=== PATIENT | female | born 1940 | race Caucasian/White ===

== ENCOUNTER → 2016-08-03 | Day surgery (SDC) | payer OTHER, BC ==
--- NOTE | 2016-08-06 10:33 | OP ---
DATE OF OPERATION: 08/03/2016 PREOPERATIVE DIAGNOSIS: Right breast mass and right axillary adenopathy, suspicious. POSTOPERATIVE DIAGNOSIS: Right breast mass and right axillary adenopathy, suspicious. PROCEDURE: Right ultrasound-guided axillary node biopsy. ANESTHESIA: Local. ATTENDING SURGEON: Ana Bertrand MD ESTIMATED BLOOD LOSS: Minimal. COMPLICATIONS: None. DESCRIPTION OF PROCEDURE: The patient was made aware of the risks and benefits of the procedure and consented. She was placed in the supine position. Under sterile conditions with 1% lidocaine for local anesthesia, a small gayatri was made in the skin. Using a 13-gauge suction biopsy device under ultrasound guidance, 6 cores were obtained of the right axillary node and submitted to Pathology. Likewise, under ultrasound guidance, a clip was placed into the biopsy region well tolerated by patient. Steri-Strips and a sterile bandage was applied. I was going to do an ultrasound-guided core of the right breast as well, but it was very distorted by the skin retraction, and it was felt that a skin biopsy would be more successful. Therefore, the case was turned over to Dr. Roblero, who performed a skin biopsy. ANA BERTRAND M.D. [id number]
--- NOTE | 2016-08-06 15:18 | PATH ---
Surgical Pathology Report Patient Name: ALEX EVANGELISTA [facility]. Rec. #: [id number] /Age/Gender: 1940 (Age: 75) / F Account: [id number] Location: Taken: 08/03/2016 Received: 08/03/2016 Reported: 08/06/2016 Physicians: Angelique Granado M.D. Specimen(s) Received A: RIGHT AXILLARY NODE CORE BIOPSY B: SKIN PUNCH BIOPSY RIGHT UPPER ABDOMINAL WALL Clinical History Palpable mass Ultrasound findings: Highly suspicious/malignant Final Diagnosis A. axillary LYMPH node, right, core biopsy: Invasive ductal carcinoma, poorly differentiated, measuring 4 mm in greatest dimension in this material. (See note) Note: No definitive lymph node tissue is identified in this biopsy; however this may represent an extensively involved lymph node with no identifiable uninvolved [place] tissue. Correlation with clinical and radiologic findings is recommended. Results of ER and UT studies performed on block A1 at [facility] are as follows: ER (clone [id number] mouse monoclonal antibody by [employer]): >9 0 % nuclear staining with moderate to strong intensity (Positive). UT (clone16 mouse monoclonal antibody by [employer]) :~10 % nuclear staining with strong intensity (Positive). Results of Her2 and Ki67 studies will be reported separately in an addendum. Positive and negative controls (internal if applicable) show appropriate results. Formalin fixation and cold ischemic times are within current ASCO/CAP recommendations for ER, UT and Her2 testing. B. upper abdominal wall, right, punch biopsy: skin showing MILD chronic non-specific inflammation and fibrosis. Negative for malignancy. Electronically Signed Verenice Pollard M.D. Addendum Reported: 08/07/2016 Addendum Diagnosis Results of Her2 (IHC) & Ki-67 studies performed on block A1 at [place], [place] ([id number]) are as follows: Her2 IHC (EP3 from [employer], formerly known as [id number], using Ren Polymer Refine detection kit): 3+ (Positive). Ki-67: 25-30% (Intermediate). Positive and negative controls (internal if applicable) show appropriate results. Verenice Pollard M.D. Gross Description A.Received in formalin labeled "right axillary node core biopsy," is a 3.6 x 2.6 x 0.3 cm. aggregate of multiple campo-yellow, irregular to cylindrical portions of fibroadipose tissue admixed with blood clot. The formalin is filtered and the specimen is entirely submitted in two cassettes. Time to formalin fixation: < 1 minute. Total formalin fixation time: Approximately 8 hours B. Received in formalin labeled "right punch upper abdominal wall," is a 0.3 cm. in diameter campo, circular skin punch biopsy excised to a depth of 0.5 cm. The epidermal surface is unremarkable. The specimen is submitted in toto in one cassette. 08/03/2016
--- NOTE | 2016-09-01 06:56 | OP ---
DATE OF OPERATION: 08/03/2016 PREOPERATIVE DIAGNOSES: Right breast mass and right axillary adenopathy, suspicious. POSTOPERATIVE DIAGNOSES: Right breast mass and right axillary adenopathy, suspicious. PROCEDURE: Punch biopsy of right chest wall skin. ANESTHESIA: Local. ATTENDING: Taina Roblero MD ESTIMATED BLOOD LOSS: Minimal. COMPLICATIONS: None. PROCEDURE: The patient was undergoing a biopsy of the right breast mass and right axillary adenopathy. The lymph node biopsy was performed by Dr. Giles. The decision was then made to do a punch biopsy of the skin instead of a core biopsy of the right breast mass. This was done by cleansing the skin with Betadine and infiltrating the skin with lidocaine 1%. A 4-mm punch biopsy was then taken. It was placed in formalin and sent to Pathology for further examination. The skin was closed with a simple suture of 3-0 nylon. Angelique [id number] MTDD
== END | disposition home or self-care (01) ==
LOC: FRADUS-SUR 13:34
PROVIDERS: ATTEND Surgery
PROC: 07B53ZX Excision of Right Axillary Lymphatic, Percutaneous Approach, Diagnostic (ICD-10-PCS; principal; 2016-08-03)
PROC: BH47ZZZ Ultrasonography of Upper Extremity (ICD-10-PCS; 2016-08-03)
PROC: 0JB60ZX Excision of Chest Subcutaneous Tissue and Fascia, Open Approach, Diagnostic (ICD-10-PCS; 2016-08-03)
DX: C96.9 Malignant neoplasm of lymphoid, hematopoietic and related tissue, unspecified (principal); N63 Unspecified lump in breast; R59.9 Enlarged lymph nodes, unspecified
CPT/HCPCS: 19083; 76942-TC; 87899; 88305-TC; 88342-TC; A4648

== ENCOUNTER 2016-08-28 07:43 | Day surgery (SDC) | payer OTHER, BC ==
[2016-08-28 09:31] LABS: BASOPHIL 0.3 % (0-2.0); EOSINOPHIL 8.7 % (0-4.5); MCH 32.9 pg (25.7-33.7); MCHC 33.6 g/dl (32.0-36.0); MEAN CELL VOLUME 97.9 fl (80-96); MEAN PLT VOLUME 9.8 fl (7.5-11.1); NEUTROPHILS 56.6 % (42.8-82.8); PLATELET COUNT 201 K/MM3 (134-434); RDW 13.3 % (11.6-15.6); WHITE BLOOD COUNT 7.7 K/mm3 (4.0-10.0)
[2016-08-28 09:56] LABS: ALBUMIN 3.6 g/dl (3.4-5.0); ANION GAP 8 (8-16); BILIRUBIN,TOTAL 0.3 mg/dL (0.2-1.0); CALCIUM 9.4 mg/dL (8.5-10.1); CO2 28 mmol/L (21-32); GLUCOSE,RANDOM 109 mg/dL (74-106); MAGNESIUM 1.8 mg/dL (1.8-2.4); SGOT/AST 37 U/L (15-37); SGPT/ALT 36 U/L (12-78); TOT PROT 6.9 g/dl (6.4-8.2)
[2016-08-28 09:57] LABS: ALK PHOS 115 U/L (45-117)
[2016-08-28 09:58] LABS: BILIRUBIN,DIRECT < 0.1 mg/dL (0.0-0.2)
[2016-08-28] MEDS ORDERED: DIPHENHYDRAMINE 50 MG in SODIUM CHLORIDE 50 ML IVPB ONE (10:00)
[2016-08-28] MEDS ORDERED: ACETAMINOPHEN 325 MG TABLET (FP) PO ONE (10:00)
[2016-08-28] MEDS ORDERED: TRASTUZUMAB IVPB ONE (10:30)
[2016-08-28] MEDS ORDERED: SODIUM CHLORIDE IVPB ONE (10:30)
[2016-08-28] MEDS ORDERED: MAGNESIUM OXIDE 400 MG TABLET (FP) PO ONE (11:45)
[2016-08-28 14:19] VITALS: BP 137/85; PULSE 50; TEMP 97.6
== END 2016-08-28 14:46 | disposition home or self-care (01) ==
LOC: JONCCHEMO 07:43 → J7W 10:27 → JONCCHEMO 14:46
PROVIDERS: ATTEND Internal Medicine Hematology & Oncology
PROC: 3E03305 Introduction of Other Antineoplastic into Peripheral Vein, Percutaneous Approach (ICD-10-PCS; principal; 2016-08-28)
PROC: 3E033GC Introduction of Other Therapeutic Substance into Peripheral Vein, Percutaneous Approach (ICD-10-PCS; 2016-08-28)
DX: Z51.11 Encounter for antineoplastic chemotherapy (principal); C50.511 Malignant neoplasm of lower-outer quadrant of right female breast
CPT/HCPCS: 96367; 96413; J9355; 36415; 80053; 80076; 83735; 85025; 96375; 96415

== ENCOUNTER 2016-09-25 07:21 | Day surgery (SDC) | payer OTHER, BC ==
[2016-09-25] MEDS ORDERED: SODIUM CHLORIDE IVPB ONE (08:00)
[2016-09-25] MEDS ORDERED: TRASTUZUMAB IVPB ONE (08:00)
[2016-09-25 11:11] LABS: BASOPHIL 1.1 % (0-2.0); EOSINOPHIL 7.2 % (0-4.5); MCH 32.9 pg (25.7-33.7); MCHC 33.8 g/dl (32.0-36.0); MEAN CELL VOLUME 97.4 fl (80-96); MEAN PLT VOLUME 10.6 fl (7.5-11.1); NEUTROPHILS 68.5 % (42.8-82.8); PLATELET COUNT 178 K/MM3 (134-434); RDW 13.2 % (11.6-15.6); WHITE BLOOD COUNT 8.6 K/mm3 (4.0-10.0)
[2016-09-25 11:39] LABS: ALBUMIN 3.7 g/dl (3.4-5.0); ALK PHOS 104 U/L (45-117); ANION GAP 8 (8-16); BILIRUBIN,DIRECT 0.1 mg/dL (0.0-0.2); BILIRUBIN,TOTAL 0.4 mg/dL (0.2-1.0); CALCIUM 9.5 mg/dL (8.5-10.1); CO2 26 mmol/L (21-32); CREATININE 0.9 mg/dL (0.55-1.02); GLUCOSE,RANDOM 101 mg/dL (74-106); SGOT/AST 26 U/L (15-37); SGPT/ALT 31 U/L (12-78); TOT PROT 6.8 g/dl (6.4-8.2)
[2016-09-25 16:14] VITALS: BP 135/77; PULSE 54; TEMP 97.8
== END 2016-09-25 11:30 | disposition home or self-care (01) ==
LOC: JONCCHEMO 07:21 → J7W 10:22 → JONCCHEMO 11:30
PROVIDERS: ATTEND Internal Medicine Hematology & Oncology
DX: Z51.11 Encounter for antineoplastic chemotherapy (principal); C50.511 Malignant neoplasm of lower-outer quadrant of right female breast
CPT/HCPCS: 96413; J9355; 36415; 80048; 80076; 85025

== ENCOUNTER 2016-10-16 07:47 | Day surgery (SDC) | payer OTHER, BC ==
[2016-10-16] MEDS ORDERED: TRASTUZUMAB IVPB ONE (10:00)
[2016-10-16] MEDS ORDERED: SODIUM CHLORIDE IVPB ONE (10:00)
[2016-10-16 11:07] LABS: EOSINOPHIL 8.3 % (0-4.5); MCH 32.6 pg (25.7-33.7); MCHC 33.4 g/dl (32.0-36.0); MEAN CELL VOLUME 97.7 fl (80-96); MEAN PLT VOLUME 10.1 fl (7.5-11.1); NEUTROPHILS 64.1 % (42.8-82.8); PLATELET COUNT 201 K/MM3 (134-434); RDW 13.3 % (11.6-15.6); WHITE BLOOD COUNT 8.6 K/mm3 (4.0-10.0)
[2016-10-16 11:36] LABS: ALBUMIN 4.1 g/dl (3.4-5.0); ANION GAP 8 (8-16); BILIRUBIN,TOTAL 0.5 mg/dL (0.2-1.0); CALCIUM 10.3 mg/dL (8.5-10.1); CO2 28 mmol/L (21-32); GLUCOSE,RANDOM 105 mg/dL (74-106); SGOT/AST 32 U/L (15-37); SGPT/ALT 57 U/L (12-78); TOT PROT 7.4 g/dl (6.4-8.2)
[2016-10-16 11:37] LABS: ALK PHOS 141 U/L (45-117)
[2016-10-16 14:37] VITALS: BP 145/59; PULSE 60; TEMP 97
== END 2016-10-16 12:45 | disposition home or self-care (01) ==
LOC: JONCCHEMO 07:47 → J7W 10:23 → JONCCHEMO 12:45
PROVIDERS: ATTEND Internal Medicine Hematology & Oncology
DX: Z51.11 Encounter for antineoplastic chemotherapy (principal); C50.511 Malignant neoplasm of lower-outer quadrant of right female breast
CPT/HCPCS: 36415; 80053; 85025; 96413; J9355

== ENCOUNTER 2016-11-06 07:25 | Day surgery (SDC) | payer OTHER, BC ==
[2016-11-06] MEDS ORDERED: SODIUM CHLORIDE IVPB ONE (08:00)
[2016-11-06] MEDS ORDERED: TRASTUZUMAB IVPB ONE (08:00)
[2016-11-06 09:16] LABS: BASOPHIL 0.3 % (0-2.0); EOSINOPHIL 11.5 % (0-4.5); MCH 32.4 pg (25.7-33.7); MCHC 33.5 g/dl (32.0-36.0); MEAN CELL VOLUME 96.8 fl (80-96); MEAN PLT VOLUME 9.5 fl (7.5-11.1); NEUTROPHILS 54.4 % (42.8-82.8); PLATELET COUNT 219 K/MM3 (134-434); RDW 13.3 % (11.6-15.6); WHITE BLOOD COUNT 8.4 K/mm3 (4.0-10.0)
[2016-11-06 09:53] LABS: ALBUMIN 3.7 g/dl (3.4-5.0); ANION GAP 7 (8-16); CALCIUM 9.5 mg/dL (8.5-10.1); CO2 28 mmol/L (21-32); GLUCOSE,RANDOM 105 mg/dL (74-106)
[2016-11-06 09:57] LABS: ALK PHOS 134 U/L (45-117); BILIRUBIN,DIRECT < 0.2 mg/dL (0.0-0.2); BILIRUBIN,TOTAL 0.5 mg/dL (0.2-1.0); CREATININE 1.1 mg/dL (0.55-1.02); SGOT/AST 28 U/L (15-37); SGPT/ALT 42 U/L (12-78); TOT PROT 6.9 g/dl (6.4-8.2)
[2016-11-06 10:45] VITALS: TEMP 97.6
[2016-11-06 11:06] VITALS: BP 151/85; PULSE 50
[2016-11-07] MEDS ORDERED: TRASTUZUMAB IVPB ONE (08:00)
[2016-11-07] MEDS ORDERED: SODIUM CHLORIDE IVPB ONE (08:00)
== END 2016-11-06 11:12 | disposition home or self-care (01) ==
LOC: JONCCHEMO 07:25 → J7W 10:16 → JONCCHEMO 11:12
PROVIDERS: ATTEND Internal Medicine Hematology & Oncology
DX: Z51.11 Encounter for antineoplastic chemotherapy (principal); C50.511 Malignant neoplasm of lower-outer quadrant of right female breast
CPT/HCPCS: 36415; 80053; 80076; 83735; 85025; 96413; J9355

== ENCOUNTER 2016-11-27 07:31 | Day surgery (SDC) | payer OTHER, BC ==
[2016-11-27] MEDS ORDERED: SODIUM CHLORIDE IVPB ONE (08:00)
[2016-11-27] MEDS ORDERED: TRASTUZUMAB IVPB ONE (08:00)
[2016-11-27 08:58] LABS: BASOPHIL 0.7 % (0-2.0); EOSINOPHIL 8.4 % (0-4.5); MCH 33.1 pg (25.7-33.7); MCHC 34.4 g/dl (32.0-36.0); MEAN CELL VOLUME 96.1 fl (80-96); MEAN PLT VOLUME 9.7 fl (7.5-11.1); NEUTROPHILS 58.9 % (42.8-82.8); PLATELET COUNT 226 K/MM3 (134-434); RDW 13.3 % (11.6-15.6); WHITE BLOOD COUNT 9.1 K/mm3 (4.0-10.0)
[2016-11-27 09:41] LABS: ALBUMIN 3.7 g/dl (3.4-5.0); ANION GAP 7 (8-16); BILIRUBIN,DIRECT 0.1 mg/dL (0.0-0.2); BILIRUBIN,TOTAL 0.5 mg/dL (0.2-1.0); CALCIUM 9.6 mg/dL (8.5-10.1); CO2 27 mmol/L (21-32); GLUCOSE,RANDOM 110 mg/dL (74-106); MAGNESIUM 1.9 mg/dL (1.8-2.4); SGOT/AST 28 U/L (15-37); SGPT/ALT 48 U/L (12-78)
[2016-11-27 09:42] LABS: ALK PHOS 142 U/L (45-117)
[2016-11-27 10:47] LABS: URIC ACID 6.4 mg/dL (2.6-7.2)
[2016-11-27 10:53] VITALS: TEMP 97.7
[2016-11-27 11:00] LABS: THYROID STIMULATING HORMONE 3.78 uIU/ml (0.358-3.74)
[2016-11-27 14:16] VITALS: BP 140/74; PULSE 48
== END 2016-11-27 11:20 | disposition home or self-care (01) ==
LOC: JONCCHEMO 07:31 → J7W 10:24 → JONCCHEMO 11:20
PROVIDERS: ATTEND Internal Medicine Hematology & Oncology
DX: Z51.11 Encounter for antineoplastic chemotherapy (principal); C50.511 Malignant neoplasm of lower-outer quadrant of right female breast
CPT/HCPCS: 36415; 80053; 80076; 83615; 83735; 84443; 84550; 85025; 86140; 86300; 96413; J9355

== ENCOUNTER 2016-12-18 07:16 | Day surgery (SDC) | payer OTHER, BC ==
[2016-12-18] MEDS ORDERED: TRASTUZUMAB IVPB ONE (10:00)
[2016-12-18] MEDS ORDERED: SODIUM CHLORIDE IVPB ONE (10:00)
[2016-12-18 10:43] LABS: BASOPHIL 1.5 % (0-2.0); EOSINOPHIL 10.7 % (0-4.5); MCH 32.4 pg (25.7-33.7); MCHC 33.7 g/dl (32.0-36.0); MEAN CELL VOLUME 96.3 fl (80-96); MEAN PLT VOLUME 9.7 fl (7.5-11.1); NEUTROPHILS 59.8 % (42.8-82.8); PLATELET COUNT 203 K/MM3 (134-434); RDW 13.4 % (11.6-15.6); WHITE BLOOD COUNT 8.3 K/mm3 (4.0-10.0)
[2016-12-18 11:15] LABS: ALBUMIN 3.7 g/dl (3.4-5.0); ALK PHOS 133 U/L (45-117); ANION GAP 7 (8-16); BILIRUBIN,DIRECT < 0.1 mg/dL (0.0-0.2); BILIRUBIN,TOTAL 0.4 mg/dL (0.2-1.0); CALCIUM 8.7 mg/dL (8.5-10.1); CO2 29 mmol/L (21-32); CREATININE 0.8 mg/dL (0.55-1.02); GLUCOSE,RANDOM 99 mg/dL (74-106); MAGNESIUM 1.9 mg/dL (1.8-2.4); SGOT/AST 37 U/L (15-37); SGPT/ALT 46 U/L (12-78); TOT PROT 6.9 g/dl (6.4-8.2)
[2016-12-18 17:16] VITALS: BP 161/79; PULSE 50; TEMP 97.8
== END 2016-12-18 11:00 | disposition home or self-care (01) ==
LOC: JONCCHEMO 07:16
PROVIDERS: ATTEND Internal Medicine Hematology & Oncology
DX: Z51.11 Encounter for antineoplastic chemotherapy (principal); C50.511 Malignant neoplasm of lower-outer quadrant of right female breast
CPT/HCPCS: 36415; 80053; 80076; 83735; 85025; 96413; J9355

== ENCOUNTER 2017-01-29 07:49 | Day surgery (SDC) | payer OTHER, BC ==
[2017-01-29] MEDS ORDERED: TRASTUZUMAB IVPB ONE ×2 (08:00)
[2017-01-29] MEDS ORDERED: SODIUM CHLORIDE IVPB ONE ×2 (08:00)
[2017-01-29 09:39] LABS: BASOPHIL 0.9 % (0-2.0); EOSINOPHIL 9.4 % (0-4.5); MCH 32.4 pg (25.7-33.7); MCHC 33.6 g/dl (32.0-36.0); MEAN CELL VOLUME 96.7 fl (80-96); MEAN PLT VOLUME 9.7 fl (7.5-11.1); NEUTROPHILS 53.3 % (42.8-82.8); PLATELET COUNT 202 K/MM3 (134-434); RDW 13.5 % (11.6-15.6); WHITE BLOOD COUNT 7.7 K/mm3 (4.0-10.0)
[2017-01-29 10:05] LABS: ALBUMIN 3.6 g/dl (3.4-5.0); ALK PHOS 136 U/L (45-117); ANION GAP 6 (8-16); BILIRUBIN,DIRECT < 0.2 mg/dL (0.0-0.2); BILIRUBIN,TOTAL 0.5 mg/dL (0.2-1.0); CO2 29 mmol/L (21-32); GLUCOSE,RANDOM 107 mg/dL (74-106); MAGNESIUM 1.9 mg/dL (1.8-2.4); SGOT/AST 34 U/L (15-37); SGPT/ALT 56 U/L (12-78); TOT PROT 6.8 g/dl (6.4-8.2)
[2017-01-29] MEDS ORDERED: amLODIPine BESYLATE 5 MG TABLET (FP) PO ONE (11:00)
[2017-01-29 14:47] VITALS: TEMP 97.6
[2017-01-29 14:59] VITALS: BP 169/96; PULSE 49
== END 2017-01-29 18:32 | disposition home or self-care (01) ==
LOC: JONCCHEMO 07:49 → J7W 11:06 → JONCCHEMO 18:32
PROVIDERS: ATTEND Internal Medicine Hematology & Oncology
DX: Z51.11 Encounter for antineoplastic chemotherapy (principal); C50.511 Malignant neoplasm of lower-outer quadrant of right female breast
CPT/HCPCS: 36415; 80053; 80076; 83735; 85025; 96413; J9355

== ENCOUNTER 2017-02-19 07:29 | Day surgery (SDC) | payer OTHER, BC ==
[2017-02-19] MEDS ORDERED: TRASTUZUMAB IVPB ONE (08:00)
[2017-02-19] MEDS ORDERED: SODIUM CHLORIDE IVPB ONE (08:00)
[2017-02-19 09:13] LABS: BASO % 1.3 % (0-2.0); EOS % 9.9 % (0-4.5); MCH 31.9 pg (25.7-33.7); MCHC 33.1 g/dl (32.0-36.0); MEAN CELL VOLUME 96.1 fl (80-96); MEAN PLT VOLUME 9.3 fl (7.5-11.1); PLATELET COUNT 198 K/MM3 (134-434); RDW 13.7 % (11.6-15.6); WHITE BLOOD COUNT 8.1 K/mm3 (4.0-10.0)
[2017-02-19 09:42] LABS: ALBUMIN 3.5 g/dl (3.4-5.0); ALK PHOS 120 U/L (45-117); ANION GAP 6 (8-16); BILIRUBIN,DIRECT < 0.2 mg/dL (0.0-0.2); BILIRUBIN,TOTAL 0.5 mg/dL (0.2-1.0); CALCIUM 9.6 mg/dL (8.5-10.1); CO2 29 mmol/L (21-32); CREATININE 0.9 mg/dL (0.55-1.02); GLUCOSE,RANDOM 98 mg/dL (74-106); SGOT/AST 28 U/L (15-37); SGPT/ALT 46 U/L (12-78); TOT PROT 6.9 g/dl (6.4-8.2)
[2017-02-19 10:43] VITALS: TEMP 97.5
[2017-02-19 11:19] VITALS: BP 154/85; PULSE 50
== END 2017-02-19 11:20 | disposition home or self-care (01) ==
LOC: JONCCHEMO 07:29 → J7W 10:27 → JONCCHEMO 11:20
PROVIDERS: ATTEND Internal Medicine Hematology & Oncology
DX: Z51.11 Encounter for antineoplastic chemotherapy (principal); C50.511 Malignant neoplasm of lower-outer quadrant of right female breast; I10 Essential (primary) hypertension; E03.9 Hypothyroidism, unspecified
CPT/HCPCS: 36415; 80053; 80076; 83735; 85025; 96413; J9355

== ENCOUNTER 2017-03-12 07:31 | Day surgery (SDC) | payer OTHER, BC ==
[2017-03-12 09:47] LABS: BASO % 0.8 % (0-2.0); EOS % 8.4 % (0-4.5); HEMATOCRIT 46.4 % (32.4-45.2); HEMOGLOBIN 15.3 GM/dL (10.7-15.3); LYMPH % 20.7 % (8-40); MCH 32.2 pg (25.7-33.7); MCHC 33.1 g/dl (32.0-36.0); MEAN CELL VOLUME 97.2 fl (80-96); MEAN PLT VOLUME 9.7 fl (7.5-11.1); MONO % 7.2 % (3.8-10.2); NEUT % 62.9 % (42.8-82.8); PLATELET COUNT 241 K/MM3 (134-434); RBC 4.77 M/mm3 (3.60-5.2); RDW 13.9 % (11.6-15.6); WHITE BLOOD COUNT 8.1 K/mm3 (4.0-10.0)
[2017-03-12] MEDS ORDERED: TRASTUZUMAB IVPB ONE (10:00)
[2017-03-12] MEDS ORDERED: SODIUM CHLORIDE IVPB ONE (10:00)
[2017-03-12 10:28] VITALS: PULSE 46; TEMP 97.5
[2017-03-12 10:34] LABS: ALBUMIN 3.7 g/dl (3.4-5.0); ANION GAP 9 (8-16); BLOOD UREA NITROGEN 16 mg/dL (7-18); CALCIUM 9.9 mg/dL (8.5-10.1); CHLORIDE 105 mmol/L (98-107); CO2 24 mmol/L (21-32); GLUCOSE,RANDOM 109 mg/dL (74-106); POTASSIUM 4.3 mmol/L (3.5-5.1); SGOT/AST 22 U/L (15-37); SGPT/ALT 42 U/L (12-78); SODIUM 138 mmol/L (136-145)
[2017-03-12 10:36] LABS: ALK PHOS 122 U/L (45-117); BILIRUBIN,DIRECT < 0.2 mg/dL (0.0-0.2); BILIRUBIN,TOTAL 0.6 mg/dL (0.2-1.0)
[2017-03-12 11:40] VITALS: BP 132/91
== END 2017-03-12 11:40 | disposition home or self-care (01) ==
LOC: JONCCHEMO 07:31 → J7W 10:25 → JONCCHEMO 11:40
PROVIDERS: ATTEND Internal Medicine Hematology & Oncology
DX: Z51.11 Encounter for antineoplastic chemotherapy (principal); C50.511 Malignant neoplasm of lower-outer quadrant of right female breast
CPT/HCPCS: 36415; 80053; 80076; 83735; 85025; 96413; J9355

== ENCOUNTER 2017-04-02 07:33 | Day surgery (SDC) | payer OTHER, BC ==
[2017-04-02] MEDS ORDERED: TRASTUZUMAB IVPB ONE (08:00)
[2017-04-02] MEDS ORDERED: SODIUM CHLORIDE IVPB ONE (08:00)
[2017-04-02 10:07] LABS: BASO % 1.5 % (0-2.0); EOS % 10.8 % (0-4.5); HEMATOCRIT 44.3 % (32.4-45.2); HEMOGLOBIN 14.7 GM/dL (10.7-15.3); LYMPH % 25.4 % (8-40); MCH 32.3 pg (25.7-33.7); MCHC 33.3 g/dl (32.0-36.0); MEAN CELL VOLUME 97.2 fl (80-96); MONO % 7.9 % (3.8-10.2); NEUT % 54.4 % (42.8-82.8); PLATELET COUNT 205 K/MM3 (134-434); RBC 4.56 M/mm3 (3.60-5.2); RDW 13.8 % (11.6-15.6); WHITE BLOOD COUNT 8.1 K/mm3 (4.0-10.0)
[2017-04-02 10:18] LABS: ALBUMIN 3.7 g/dl (3.4-5.0); ANION GAP 8 (8-16); BILIRUBIN,DIRECT < 0.2 mg/dL (0.0-0.2); BILIRUBIN,TOTAL 0.4 mg/dL (0.2-1.0); BLOOD UREA NITROGEN 17 mg/dL (7-18); CALCIUM 9.2 mg/dL (8.5-10.1); CHLORIDE 106 mmol/L (98-107); CO2 26 mmol/L (21-32); CREATININE 1.1 mg/dL (0.55-1.02); GLUCOSE,RANDOM 101 mg/dL (74-106); MAGNESIUM 1.8 mg/dL (1.8-2.4); SGOT/AST 29 U/L (15-37); SGPT/ALT 45 U/L (12-78); SODIUM 140 mmol/L (136-145); TOT PROT 6.8 g/dl (6.4-8.2)
[2017-04-02 10:19] LABS: ALK PHOS 123 U/L (45-117)
[2017-04-02 11:31] VITALS: TEMP 98.1
[2017-04-02 12:19] VITALS: BP 150/86; PULSE 55
== END 2017-04-02 11:40 | disposition home or self-care (01) ==
LOC: JONCCHEMO 07:33 → J7W 10:58 → JONCCHEMO 11:40
PROVIDERS: ATTEND Internal Medicine Hematology & Oncology
DX: Z51.11 Encounter for antineoplastic chemotherapy (principal); C50.511 Malignant neoplasm of lower-outer quadrant of right female breast
CPT/HCPCS: 36415; 80053; 80076; 83735; 85025; 96413; J9355

== ENCOUNTER 2017-04-23 07:30 | Day surgery (SDC) | payer OTHER, BC ==
[2017-04-23 09:21] LABS: BASO % 2.3 % (0-2.0); EOS % 8.8 % (0-4.5); HEMATOCRIT 42.3 % (32.4-45.2); HEMOGLOBIN 14.4 GM/dL (10.7-15.3); LYMPH % 29.7 % (8-40); MCH 32.8 pg (25.7-33.7); MEAN CELL VOLUME 96.4 fl (80-96); MEAN PLT VOLUME 10.1 fl (7.5-11.1); MONO % 7.8 % (3.8-10.2); NEUT % 51.4 % (42.8-82.8); PLATELET COUNT 197 K/MM3 (134-434); RBC 4.38 M/mm3 (3.60-5.2); RDW 13.5 % (11.6-15.6); WHITE BLOOD COUNT 7.8 K/mm3 (4.0-10.0)
[2017-04-23 09:27] LABS: ALBUMIN 3.6 g/dl (3.4-5.0); ANION GAP 6 (8-16); BILIRUBIN,DIRECT < 0.2 mg/dL (0.0-0.2); BILIRUBIN,TOTAL 0.4 mg/dL (0.2-1.0); BLOOD UREA NITROGEN 17 mg/dL (7-18); CALCIUM 8.8 mg/dL (8.5-10.1); CHLORIDE 108 mmol/L (98-107); CO2 27 mmol/L (21-32); CREATININE 0.9 mg/dL (0.55-1.02); GLUCOSE,RANDOM 95 mg/dL (74-106); MAGNESIUM 1.7 mg/dL (1.8-2.4); POTASSIUM 3.7 mmol/L (3.5-5.1); SGOT/AST 20 U/L (15-37); SGPT/ALT 35 U/L (12-78); SODIUM 141 mmol/L (136-145); TOT PROT 6.6 g/dl (6.4-8.2)
[2017-04-23 09:30] LABS: ALK PHOS 116 U/L (45-117)
[2017-04-23] MEDS ORDERED: TRASTUZUMAB IVPB ONE (10:00)
[2017-04-23] MEDS ORDERED: SODIUM CHLORIDE IVPB ONE (10:00)
[2017-04-23] MEDS ORDERED: MAGNESIUM SULFATE IN WATER 2 GM/50 ML IVPB IVPB ONE (10:15)
[2017-04-23] MEDS ORDERED: MAGNESIUM SULF 50% (8.12 MEQ/2 ML-1 GM VIAL) ONE (10:43)
[2017-04-23 14:50] VITALS: TEMP 97.7
[2017-04-23 14:51] VITALS: BP 119/75; PULSE 58
== END 2017-04-23 12:00 | disposition home or self-care (01) ==
LOC: JONCCHEMO 07:30 → J7W 09:51 → JONCCHEMO 12:00
PROVIDERS: ATTEND Internal Medicine Hematology & Oncology
DX: Z51.11 Encounter for antineoplastic chemotherapy (principal); C50.511 Malignant neoplasm of lower-outer quadrant of right female breast
CPT/HCPCS: 36415; 80053; 80076; 83735; 85025; 96413; 96417; J9355

== ENCOUNTER 2017-06-04 07:30 | Day surgery (SDC) | payer OTHER, BC ==
[2017-06-04] MEDS ORDERED: TRASTUZUMAB IVPB ONE (08:00)
[2017-06-04] MEDS ORDERED: SODIUM CHLORIDE IVPB ONE (08:00)
[2017-06-04 09:34] LABS: BASO % 0.5 % (0-2.0); EOS % 9.2 % (0-4.5); HEMOGLOBIN 15.1 GM/dL (10.7-15.3); LYMPH % 25.9 % (8-40); MCH 33.2 pg (25.7-33.7); MCHC 34.3 g/dl (32.0-36.0); MEAN CELL VOLUME 96.8 fl (80-96); MEAN PLT VOLUME 10.2 fl (7.5-11.1); MONO % 7.8 % (3.8-10.2); NEUT % 56.6 % (42.8-82.8); PLATELET COUNT 206 K/MM3 (134-434); RBC 4.54 M/mm3 (3.60-5.2)
[2017-06-04 09:57] LABS: ALBUMIN 3.6 g/dl (3.4-5.0); ALK PHOS 115 U/L (45-117); ANION GAP 7 (8-16); BILIRUBIN,DIRECT < 0.2 mg/dL (0.0-0.2); BILIRUBIN,TOTAL 0.3 mg/dL (0.2-1.0); BLOOD UREA NITROGEN 18 mg/dL (7-18); CALCIUM 9.3 mg/dL (8.5-10.1); CHLORIDE 106 mmol/L (98-107); CO2 26 mmol/L (21-32); CREATININE 1.1 mg/dL (0.55-1.02); GLUCOSE,RANDOM 104 mg/dL (74-106); MAGNESIUM 1.7 mg/dL (1.8-2.4); POTASSIUM 3.8 mmol/L (3.5-5.1); SGOT/AST 22 U/L (15-37); SGPT/ALT 23 U/L (12-78); SODIUM 139 mmol/L (136-145); TOT PROT 6.9 g/dl (6.4-8.2)
[2017-06-04 17:22] VITALS: BP 122/66; PULSE 60; TEMP 97.6
== END 2017-06-04 12:00 | disposition home or self-care (01) ==
LOC: JONCCHEMO 07:30 → J7W 10:59 → JONCCHEMO 12:00
PROVIDERS: ATTEND Internal Medicine Hematology & Oncology
DX: Z51.11 Encounter for antineoplastic chemotherapy (principal); C50.511 Malignant neoplasm of lower-outer quadrant of right female breast
CPT/HCPCS: 36415; 80053; 80076; 83735; 85025; 96413; J9355

== ENCOUNTER 2017-06-25 07:24 | Day surgery (SDC) | payer OTHER, BC ==
[2017-06-25 09:30] LABS: BASO % 0.7 % (0-2.0); EOS % 7.5 % (0-4.5); HEMATOCRIT 43.5 % (32.4-45.2); HEMOGLOBIN 14.8 GM/dL (10.7-15.3); LYMPH % 22.2 % (8-40); MEAN CELL VOLUME 96.9 fl (80-96); MEAN PLT VOLUME 9.6 fl (7.5-11.1); MONO % 8.7 % (3.8-10.2); NEUT % 60.9 % (42.8-82.8); PLATELET COUNT 215 K/MM3 (134-434); RBC 4.49 M/mm3 (3.60-5.2); RDW 13.3 % (11.6-15.6); WHITE BLOOD COUNT 6.5 K/mm3 (4.0-10.0)
[2017-06-25] MEDS ORDERED: TRASTUZUMAB IVPB ONE (10:00)
[2017-06-25] MEDS ORDERED: SODIUM CHLORIDE IVPB ONE (10:00)
[2017-06-25 10:05] LABS: ALBUMIN 3.7 g/dl (3.4-5.0); ALK PHOS 120 U/L (45-117); ALK PHOS 124 U/L (45-117); ANION GAP 5 (8-16); BILIRUBIN,DIRECT < 0.2 mg/dL (0.0-0.2); BILIRUBIN,TOTAL 0.4 mg/dL (0.2-1.0); BLOOD UREA NITROGEN 18 mg/dL (7-18); CALCIUM 9.6 mg/dL (8.5-10.1); CHLORIDE 106 mmol/L (98-107); CO2 28 mmol/L (21-32); GLUCOSE,RANDOM 93 mg/dL (74-106); POTASSIUM 4.4 mmol/L (3.5-5.1); SGOT/AST 21 U/L (15-37); SGPT/ALT 37 U/L (12-78); SGPT/ALT 38 U/L (12-78); SODIUM 139 mmol/L (136-145); TOT PROT 7.1 g/dl (6.4-8.2)
[2017-06-25 12:03] VITALS: BP 121/71; PULSE 48; TEMP 97.7
== END 2017-06-25 11:20 | disposition home or self-care (01) ==
LOC: JONCCHEMO 07:24 → J7W 10:11 → JONCCHEMO 11:20
PROVIDERS: ATTEND Internal Medicine Hematology & Oncology
DX: Z51.11 Encounter for antineoplastic chemotherapy (principal); C50.511 Malignant neoplasm of lower-outer quadrant of right female breast
CPT/HCPCS: 36415; 80053; 80076; 83735; 85025; 96413; J9355

== ENCOUNTER 2017-07-15 07:26 | Day surgery (SDC) | payer OTHER, BC ==
[2017-07-15] MEDS ORDERED: SODIUM CHLORIDE IVPB ONE (08:00)
[2017-07-15] MEDS ORDERED: TRASTUZUMAB IVPB ONE (08:00)
[2017-07-15 12:33] LABS: BASO % 1.1 % (0-2.0); EOS % 6.6 % (0-4.5); HEMATOCRIT 43.8 % (32.4-45.2); HEMOGLOBIN 14.9 GM/dL (10.7-15.3); LYMPH % 15.7 % (8-40); MEAN PLT VOLUME 10.2 fl (7.5-11.1); MONO % 6.1 % (3.8-10.2); NEUT % 70.5 % (42.8-82.8); PLATELET COUNT 206 K/MM3 (134-434); RBC 4.51 M/mm3 (3.60-5.2); RDW 13.1 % (11.6-15.6); WHITE BLOOD COUNT 9.7 K/mm3 (4.0-10.0)
[2017-07-15 13:06] LABS: ALBUMIN 3.7 g/dl (3.4-5.0); ALK PHOS 112 U/L (45-117); ANION GAP 7 (8-16); BILIRUBIN,TOTAL 0.5 mg/dL (0.2-1.0); BLOOD UREA NITROGEN 17 mg/dL (7-18); CALCIUM 9.4 mg/dL (8.5-10.1); CHLORIDE 107 mmol/L (98-107); CO2 28 mmol/L (21-32); CREATININE 0.9 mg/dL (0.55-1.02); GLUCOSE,RANDOM 95 mg/dL (74-106); POTASSIUM 4.3 mmol/L (3.5-5.1); SGOT/AST 18 U/L (15-37); SGPT/ALT 25 U/L (12-78); SODIUM 142 mmol/L (136-145); TOT PROT 6.9 g/dl (6.4-8.2)
[2017-07-15 18:47] VITALS: BP 124/72; PULSE 64; TEMP 97.8
== END 2017-07-15 14:30 | disposition home or self-care (01) ==
LOC: JONCCHEMO 07:26 → J7W 11:27 → JONCCHEMO 14:30
PROVIDERS: ATTEND Internal Medicine Hematology & Oncology
DX: Z51.11 Encounter for antineoplastic chemotherapy (principal); C50.511 Malignant neoplasm of lower-outer quadrant of right female breast
CPT/HCPCS: 36415; 80053; 85025; 96413; J9355

== ENCOUNTER 2017-08-06 07:48 | Day surgery (SDC) | payer OTHER, BC ==
[2017-08-06] MEDS ORDERED: SODIUM CHLORIDE IVPB ONE (08:00)
[2017-08-06] MEDS ORDERED: TRASTUZUMAB IVPB ONE (08:00)
[2017-08-06 10:08] LABS: BASO % 1.6 % (0-2.0); EOS % 9.1 % (0-4.5); HEMATOCRIT 41.6 % (32.4-45.2); HEMOGLOBIN 14.1 GM/dL (10.7-15.3); LYMPH % 21.2 % (8-40); MCH 32.7 pg (25.7-33.7); MCHC 33.8 g/dl (32.0-36.0); MEAN CELL VOLUME 96.8 fl (80-96); MEAN PLT VOLUME 9.8 fl (7.5-11.1); MONO % 8.5 % (3.8-10.2); NEUT % 59.6 % (42.8-82.8); PLATELET COUNT 226 K/MM3 (134-434); RDW 13.3 % (11.6-15.6); WHITE BLOOD COUNT 8.1 K/mm3 (4.0-10.0)
[2017-08-06 13:09] LABS: ALBUMIN 3.5 g/dl (3.4-5.0); ANION GAP 9 (8-16); BLOOD UREA NITROGEN 20 mg/dL (7-18); CALCIUM 9.4 mg/dL (8.5-10.1); CHLORIDE 105 mmol/L (98-107); CO2 25 mmol/L (21-32); POTASSIUM 3.6 mmol/L (3.5-5.1); SODIUM 139 mmol/L (136-145)
[2017-08-06 13:12] LABS: ALK PHOS 123 U/L (45-117); BILIRUBIN,TOTAL 0.3 mg/dL (0.2-1.0); CREATININE 1.1 mg/dL (0.55-1.02); GLUCOSE,RANDOM 105 mg/dL (74-106); SGOT/AST 44 U/L (15-37); SGPT/ALT 45 U/L (12-78); TOT PROT 6.7 g/dl (6.4-8.2)
[2017-08-06 15:02] LABS: BILIRUBIN,DIRECT < 0.2 mg/dL (0.0-0.2); MAGNESIUM 1.9 mg/dL (1.8-2.4)
[2017-08-06 15:15] VITALS: BP 134/67; PULSE 42; TEMP 98.3
== END 2017-08-06 12:50 | disposition home or self-care (01) ==
LOC: JONCCHEMO 07:48 → J7W 11:57 → JONCCHEMO 12:50
PROVIDERS: ATTEND Internal Medicine Hematology & Oncology
DX: Z51.11 Encounter for antineoplastic chemotherapy (principal); C50.511 Malignant neoplasm of lower-outer quadrant of right female breast
CPT/HCPCS: 36415; 80053; 80076; 83735; 85025; 96413; J9355

== ENCOUNTER 2017-08-26 07:48 | Day surgery (SDC) | payer OTHER, BC ==
[2017-08-26] MEDS ORDERED: TRASTUZUMAB IVPB ONE (10:00)
[2017-08-26] MEDS ORDERED: SODIUM CHLORIDE IVPB ONE (10:00)
[2017-08-26 10:28] LABS: BASO % 0.2 % (0-2.0); EOS % 10.3 % (0-4.5); HEMATOCRIT 42.8 % (32.4-45.2); HEMOGLOBIN 14.5 GM/dL (10.7-15.3); LYMPH % 19.3 % (8-40); MCH 32.8 pg (25.7-33.7); MEAN CELL VOLUME 96.6 fl (80-96); MONO % 6.9 % (3.8-10.2); NEUT % 63.3 % (42.8-82.8); PLATELET COUNT 198 K/MM3 (134-434); RBC 4.42 M/mm3 (3.60-5.2); RDW 13.4 % (11.6-15.6); WHITE BLOOD COUNT 7.5 K/mm3 (4.0-10.0)
[2017-08-26 11:08] LABS: ALBUMIN 3.5 g/dl (3.4-5.0); ANION GAP 5 (8-16); BILIRUBIN,DIRECT < 0.2 mg/dL (0.0-0.2); BILIRUBIN,TOTAL 0.4 mg/dL (0.2-1.0); BLOOD UREA NITROGEN 16 mg/dL (7-18); CALCIUM 9.2 mg/dL (8.5-10.1); CHLORIDE 108 mmol/L (98-107); CO2 29 mmol/L (21-32); GLUCOSE,RANDOM 99 mg/dL (74-106); POTASSIUM 4.2 mmol/L (3.5-5.1); SGOT/AST 46 U/L (15-37); SGPT/ALT 52 U/L (12-78); SODIUM 142 mmol/L (136-145); TOT PROT 6.8 g/dl (6.4-8.2)
[2017-08-26 11:09] LABS: ALK PHOS 150 U/L (45-117)
[2017-08-26 15:27] VITALS: BP 162/91; PULSE 46; TEMP 97.9
== END 2017-08-26 14:00 | disposition home or self-care (01) ==
LOC: JONCCHEMO 07:48 → J7W 13:02 → JONCCHEMO 14:00
PROVIDERS: ATTEND Internal Medicine Hematology & Oncology
DX: Z51.11 Encounter for antineoplastic chemotherapy (principal); C50.511 Malignant neoplasm of lower-outer quadrant of right female breast
CPT/HCPCS: 36415; 80053; 80076; 83735; 85025; 96413; J9355

== ENCOUNTER 2017-09-16 08:34 | Day surgery (SDC) | payer OTHER, BC ==
[~2017-09-16 08:34] MED LIST: SODIUM CHLORIDE IVPB ONE; TRASTUZUMAB IVPB ONE
[2017-09-16 13:00] LABS: BASO % 1.4 % (0-2.0); EOS % 10.2 % (0-4.5); HEMATOCRIT 44.1 % (32.4-45.2); HEMOGLOBIN 14.9 GM/dL (10.7-15.3); MCH 32.7 pg (25.7-33.7); MCHC 33.8 g/dl (32.0-36.0); MEAN CELL VOLUME 96.7 fl (80-96); MEAN PLT VOLUME 10.4 fl (7.5-11.1); MONO % 6.9 % (3.8-10.2); NEUT % 62.5 % (42.8-82.8); PLATELET COUNT 193 K/MM3 (134-434); RBC 4.56 M/mm3 (3.60-5.2); RDW 13.5 % (11.6-15.6); WHITE BLOOD COUNT 7.3 K/mm3 (4.0-10.0)
[2017-09-16 13:28] LABS: ALBUMIN 3.8 g/dl (3.4-5.0); ANION GAP 8 (8-16); BLOOD UREA NITROGEN 17 mg/dL (7-18); CALCIUM 9.7 mg/dL (8.5-10.1); CHLORIDE 107 mmol/L (98-107); CO2 25 mmol/L (21-32); GLUCOSE,RANDOM 109 mg/dL (74-106); POTASSIUM 3.9 mmol/L (3.5-5.1); SGOT/AST 28 U/L (15-37); SGPT/ALT 37 U/L (12-78); SODIUM 140 mmol/L (136-145)
[2017-09-16 13:30] LABS: ALK PHOS 132 U/L (45-117); BILIRUBIN,TOTAL 0.5 mg/dL (0.2-1.0)
[2017-09-16 13:53] LABS: ALBUMIN 3.7 g/dl (3.4-5.0); BILIRUBIN,DIRECT 0.2 mg/dL (0.0-0.2); BILIRUBIN,TOTAL 0.5 mg/dL (0.2-1.0); MAGNESIUM 1.8 mg/dL (1.8-2.4); TOT PROT 7.1 g/dl (6.4-8.2)
[2017-09-16 17:37] VITALS: BP 150/75; PULSE 58; TEMP 97.5
== END 2017-09-16 14:50 | disposition home or self-care (01) ==
LOC: JONCCHEMO 08:34 → J7W 13:30 → JONCCHEMO 14:50
PROVIDERS: ATTEND Internal Medicine Hematology & Oncology
DX: Z51.11 Encounter for antineoplastic chemotherapy (principal); C50.511 Malignant neoplasm of lower-outer quadrant of right female breast
CPT/HCPCS: 36415; 80053; 80076; 83735; 85025; 96413; J9355

== ENCOUNTER 2017-10-07 07:49 | Day surgery (SDC) | payer OTHER, BC ==
[2017-10-07] MEDS ORDERED: TRASTUZUMAB IVPB ONE (10:00)
[2017-10-07] MEDS ORDERED: SODIUM CHLORIDE IVPB ONE (10:00)
[2017-10-07 10:37] LABS: BASO % 1.2 % (0-2.0); EOS % 5.3 % (0-4.5); HEMATOCRIT 45.4 % (32.4-45.2); HEMOGLOBIN 15.4 GM/dL (10.7-15.3); LYMPH % 17.3 % (8-40); MCH 32.4 pg (25.7-33.7); MCHC 33.9 g/dl (32.0-36.0); MEAN CELL VOLUME 95.6 fl (80-96); MEAN PLT VOLUME 9.8 fl (7.5-11.1); MONO % 6.6 % (3.8-10.2); NEUT % 69.6 % (42.8-82.8); PLATELET COUNT 233 K/MM3 (134-434); RBC 4.75 M/mm3 (3.60-5.2); RDW 13.2 % (11.6-15.6); WHITE BLOOD COUNT 8.7 K/mm3 (4.0-10.0)
[2017-10-07 13:23] LABS: ALBUMIN 3.9 g/dl (3.4-5.0); CALCIUM 10.1 mg/dL (8.5-10.1); CHLORIDE 106 mmol/L (98-107); POTASSIUM 3.8 mmol/L (3.5-5.1); SODIUM 143 mmol/L (136-145)
[2017-10-07 13:24] LABS: MAGNESIUM 1.8 mg/dL (1.8-2.4); SGOT/AST 30 U/L (15-37)
[2017-10-07 13:27] LABS: ALK PHOS 137 U/L (45-117); BILIRUBIN,DIRECT < 0.2 mg/dL (0.0-0.2); BILIRUBIN,TOTAL 0.4 mg/dL (0.2-1.0); SGPT/ALT 35 U/L (12-78); TOT PROT 7.5 g/dl (6.4-8.2)
[2017-10-07 13:28] LABS: ALK PHOS 133 U/L (45-117); ANION GAP 12 (8-16); BILIRUBIN,TOTAL 0.4 mg/dL (0.2-1.0); BLOOD UREA NITROGEN 20 mg/dL (7-18); CO2 25 mmol/L (21-32); CREATININE 1.4 mg/dL (0.55-1.02); GLUCOSE,RANDOM 102 mg/dL (74-106); SGOT/AST 25 U/L (15-37); SGPT/ALT 36 U/L (12-78); TOT PROT 7.3 g/dl (6.4-8.2)
[2017-10-07 15:17] VITALS: BP 124/65; PULSE 54; TEMP 97.7
== END 2017-10-07 12:35 | disposition home or self-care (01) ==
LOC: JONCCHEMO 07:49 → J7W 11:15 → JONCCHEMO 12:35
PROVIDERS: ATTEND Internal Medicine Hematology & Oncology
DX: Z51.11 Encounter for antineoplastic chemotherapy (principal); C50.511 Malignant neoplasm of lower-outer quadrant of right female breast
CPT/HCPCS: 36415; 80053; 80076; 83735; 85025; 96413; J9355

== ENCOUNTER 2017-10-28 07:49 | Day surgery (SDC) | payer OTHER, BC ==
[2017-10-28] MEDS ORDERED: SODIUM CHLORIDE IVPB ONE (10:00)
[2017-10-28] MEDS ORDERED: TRASTUZUMAB IVPB ONE (10:00)
[2017-10-28 12:13] LABS: BASO % 1.4 % (0-2.0); EOS % 6.9 % (0-4.5); HEMATOCRIT 42.2 % (32.4-45.2); HEMOGLOBIN 14.2 GM/dL (10.7-15.3); LYMPH % 21.6 % (8-40); MCH 32.2 pg (25.7-33.7); MCHC 33.6 g/dl (32.0-36.0); MONO % 6.9 % (3.8-10.2); NEUT % 63.2 % (42.8-82.8); PLATELET COUNT 177 K/MM3 (134-434); RBC 4.39 M/mm3 (3.60-5.2); RDW 13.4 % (11.6-15.6); WHITE BLOOD COUNT 7.9 K/mm3 (4.0-10.0)
[2017-10-28 12:42] LABS: ALBUMIN 3.7 g/dl (3.4-5.0); ALK PHOS 98 U/L (45-117); ANION GAP 6 MMOL/L (8-16); BILIRUBIN,TOTAL 0.5 mg/dL (0.2-1.0); BLOOD UREA NITROGEN 20 mg/dL (7-18); CALCIUM 9.5 mg/dL (8.5-10.1); CHLORIDE 105 mmol/L (98-107); CO2 29 mmol/L (21-32); CREATININE 1.1 mg/dL (0.55-1.02); GLUCOSE,RANDOM 114 mg/dL (74-106); POTASSIUM 3.6 mmol/L (3.5-5.1); SGOT/AST 23 U/L (15-37); SGPT/ALT 25 U/L (12-78); SODIUM 140 mmol/L (136-145); TOT PROT 6.9 g/dl (6.4-8.2)
[2017-10-28 12:43] LABS: ALBUMIN 3.7 g/dl (3.4-5.0); MAGNESIUM 1.7 mg/dL (1.8-2.4)
[2017-10-28 12:52] LABS: ALK PHOS 102 U/L (45-117); BILIRUBIN,DIRECT < 0.2 mg/dL (0.0-0.2); BILIRUBIN,TOTAL 0.6 mg/dL (0.2-1.0); SGOT/AST 23 U/L (15-37); SGPT/ALT 26 U/L (12-78); TOT PROT 6.8 g/dl (6.4-8.2)
[2017-10-28] MEDS ORDERED: MAGNESIUM OXIDE 400 MG TABLET (FP) PO ONE (14:15)
[2017-10-28 17:29] VITALS: TEMP 97.1
[2017-10-28 17:32] VITALS: BP 148/74; PULSE 49
== END 2017-10-28 17:35 | disposition home or self-care (01) ==
LOC: JONCCHEMO 07:49 → J7W 13:13 → JONCCHEMO 17:35
PROVIDERS: ATTEND Internal Medicine Hematology & Oncology
DX: Z51.11 Encounter for antineoplastic chemotherapy (principal); C50.511 Malignant neoplasm of lower-outer quadrant of right female breast
CPT/HCPCS: 36415; 80053; 80076; 83735; 85025; 96413; J9355

== ENCOUNTER 2017-11-18 07:36 | Day surgery (SDC) | payer OTHER, BC ==
[2017-11-18] MEDS ORDERED: SODIUM CHLORIDE IVPB ONE (08:00)
[2017-11-18] MEDS ORDERED: TRASTUZUMAB IVPB ONE (08:00)
[2017-11-18 13:54] LABS: BASO % 1.4 % (0-2.0); EOS % 9.4 % (0-4.5); HEMATOCRIT 41.5 % (32.4-45.2); HEMOGLOBIN 14.1 GM/dL (10.7-15.3); MCH 33.1 pg (25.7-33.7); MEAN CELL VOLUME 97.2 fl (80-96); MEAN PLT VOLUME 10.4 fl (7.5-11.1); MONO % 5.9 % (3.8-10.2); NEUT % 61.3 % (42.8-82.8); PLATELET COUNT 204 K/MM3 (134-434); RBC 4.27 M/mm3 (3.60-5.2); RDW 13.9 % (11.6-15.6); WHITE BLOOD COUNT 7.5 K/mm3 (4.0-10.0)
[2017-11-18 14:14] LABS: ALBUMIN 3.5 g/dl (3.4-5.0); ALBUMIN 3.6 g/dl (3.4-5.0); ALK PHOS 108 U/L (45-117); ANION GAP 9 MMOL/L (8-16); BILIRUBIN,DIRECT < 0.2 mg/dL (0.0-0.2); BILIRUBIN,TOTAL 0.4 mg/dL (0.2-1.0); BLOOD UREA NITROGEN 24 mg/dL (7-18); CALCIUM 9.2 mg/dL (8.5-10.1); CHLORIDE 106 mmol/L (98-107); CO2 25 mmol/L (21-32); CREATININE 1.2 mg/dL (0.55-1.3); GLUCOSE,RANDOM 115 mg/dL (74-106); MAGNESIUM 1.5 mg/dL (1.8-2.4); POTASSIUM 3.6 mmol/L (3.5-5.1); SGOT/AST 26 U/L (15-37); SGPT/ALT 29 U/L (13-61); SGPT/ALT 32 U/L (13-61); SODIUM 140 mmol/L (136-145); TOT PROT 6.8 g/dl (6.4-8.2)
[2017-11-18 14:15] LABS: ALK PHOS 107 U/L (45-117)
[2017-11-18] MEDS ORDERED: MAGNESIUM SULF 50% (8.12 MEQ/2 ML-1 GM VIAL) IVPB ONE (14:45)
[2017-11-18 15:50] VITALS: TEMP 98.2
[2017-11-18 16:20] VITALS: BP 120/69; PULSE 42
== END 2017-11-18 16:20 | disposition home or self-care (01) ==
LOC: JONCCHEMO 07:36 → J7W 14:16 → JONCCHEMO 16:20
PROVIDERS: ATTEND Internal Medicine Hematology & Oncology
DX: Z51.11 Encounter for antineoplastic chemotherapy (principal); C50.511 Malignant neoplasm of lower-outer quadrant of right female breast
CPT/HCPCS: 36415; 80053; 80076; 83735; 85025; 96367; 96413; 96417; J9355

== ENCOUNTER 2017-12-30 07:29 | Day surgery (SDC) | payer OTHER, BC ==
[2017-12-30] MEDS ORDERED: TRASTUZUMAB IVPB ONE (08:00)
[2017-12-30] MEDS ORDERED: SODIUM CHLORIDE IVPB ONE (08:00)
[2017-12-30 14:00] LABS: BASO % 1.4 % (0-2.0); HEMOGLOBIN 14.9 GM/dL (10.7-15.3); LYMPH % 18.5 % (8-40); MCH 32.5 pg (25.7-33.7); MCHC 33.2 g/dl (32.0-36.0); MEAN PLT VOLUME 10.6 fl (7.5-11.1); MONO % 6.5 % (3.8-10.2); NEUT % 64.6 % (42.8-82.8); PLATELET COUNT 222 K/MM3 (134-434); RBC 4.59 M/mm3 (3.60-5.2); RDW 13.6 % (11.6-15.6); WHITE BLOOD COUNT 8.9 K/mm3 (4.0-10.0)
[2017-12-30 14:26] LABS: ALBUMIN 4.1 g/dl (3.4-5.0); ALK PHOS 146 U/L (45-117); ANION GAP 7 MMOL/L (8-16); BILIRUBIN,DIRECT 0.1 mg/dL (0.0-0.2); BILIRUBIN,TOTAL 0.4 mg/dL (0.2-1); BLOOD UREA NITROGEN 25 mg/dL (7-18); CALCIUM 9.9 mg/dL (8.5-10.1); CHLORIDE 102 mmol/L (98-107); CO2 29 mmol/L (21-32); CREATININE 1.2 mg/dL (0.55-1.3); GLUCOSE,RANDOM 116 mg/dL (74-106); MAGNESIUM 1.8 mg/dL (1.8-2.4); POTASSIUM 4.3 mmol/L (3.5-5.1); SGOT/AST 41 U/L (15-37); SGPT/ALT 52 U/L (13-61); SODIUM 139 mmol/L (136-145); TOT PROT 7.4 g/dl (6.4-8.2)
[2017-12-30 15:39] VITALS: BP 144/68; PULSE 47; TEMP 98
== END 2017-12-30 16:10 | disposition home or self-care (01) ==
LOC: JONCCHEMO 07:29 → J7W 15:23 → JONCCHEMO 16:10
PROVIDERS: ATTEND Internal Medicine Hematology & Oncology
DX: Z51.11 Encounter for antineoplastic chemotherapy (principal); C50.511 Malignant neoplasm of lower-outer quadrant of right female breast
CPT/HCPCS: 36415; 80053; 80076; 83735; 85025; 96413; J9355

== ENCOUNTER 2018-01-20 07:28 | Day surgery (SDC) | payer OTHER, BC ==
[2018-01-20] MEDS ORDERED: TRASTUZUMAB IVPB ONE (10:00)
[2018-01-20] MEDS ORDERED: SODIUM CHLORIDE IVPB ONE (10:00)
[2018-01-20 13:48] LABS: BASO % 0.6 % (0-2.0); EOS % 7.8 % (0-4.5); HEMATOCRIT 44.5 % (32.4-45.2); HEMOGLOBIN 14.5 GM/dL (10.7-15.3); LYMPH % 22.3 % (8-40); MCHC 32.7 g/dl (32.0-36.0); MEAN CELL VOLUME 97.8 fl (80-96); MEAN PLT VOLUME 9.6 fl (7.5-11.1); MONO % 6.7 % (3.8-10.2); NEUT % 62.6 % (42.8-82.8); PLATELET COUNT 190 K/MM3 (134-434); RBC 4.55 M/mm3 (3.60-5.2); RDW 13.2 % (11.6-15.6); WHITE BLOOD COUNT 8.5 K/mm3 (4.0-10.0)
[2018-01-20 14:14] LABS: ALBUMIN 3.6 g/dl (3.4-5.0); ALK PHOS 117 U/L (45-117); ANION GAP 8 MMOL/L (8-16); BILIRUBIN,DIRECT 0.1 mg/dL (0.0-0.2); BILIRUBIN,TOTAL 0.4 mg/dL (0.2-1); BLOOD UREA NITROGEN 27 mg/dL (7-18); CALCIUM 9.7 mg/dL (8.5-10.1); CHLORIDE 101 mmol/L (98-107); CO2 28 mmol/L (21-32); CREATININE 1.1 mg/dL (0.55-1.3); GLUCOSE,RANDOM 125 mg/dL (74-106); MAGNESIUM 1.6 mg/dL (1.8-2.4); POTASSIUM 3.9 mmol/L (3.5-5.1); SGOT/AST 24 U/L (15-37); SGPT/ALT 28 U/L (13-61); SODIUM 137 mmol/L (136-145)
[2018-01-20] MEDS ORDERED: MAGNESIUM OXIDE 400 MG TABLET (FP) PO ONE (14:22)
[2018-01-20 15:45] VITALS: BP 140/77; PULSE 55; TEMP 98.2
== END 2018-01-20 15:31 | disposition home or self-care (01) ==
LOC: JONCCHEMO 07:28 → J7W 14:59 → JONCCHEMO 15:31
PROVIDERS: ATTEND Internal Medicine Hematology & Oncology
DX: Z51.11 Encounter for antineoplastic chemotherapy (principal); C50.511 Malignant neoplasm of lower-outer quadrant of right female breast
CPT/HCPCS: 36415; 80053; 80076; 83735; 85025; 96413; J9355

== ENCOUNTER 2018-02-10 07:32 | Day surgery (SDC) | payer OTHER, BC ==
[2018-02-10] MEDS ORDERED: SODIUM CHLORIDE IVPB ONE (10:00)
[2018-02-10] MEDS ORDERED: TRASTUZUMAB IVPB ONE (10:00)
[2018-02-10 14:41] LABS: BASO % 1.3 % (0-2.0); EOS % 6.5 % (0-4.5); HEMATOCRIT 42.3 % (32.4-45.2); HEMOGLOBIN 15.1 GM/dL (10.7-15.3); LYMPH % 20.4 % (8-40); MCH 34.1 pg (25.7-33.7); MCHC 35.6 g/dl (32.0-36.0); MEAN CELL VOLUME 95.8 fl (80-96); MEAN PLT VOLUME 10.3 fl (7.5-11.1); MONO % 6.7 % (3.8-10.2); NEUT % 65.1 % (42.8-82.8); PLATELET COUNT 206 K/MM3 (134-434); RBC 4.42 M/mm3 (3.60-5.2); RDW 13.6 % (11.6-15.6); WHITE BLOOD COUNT 8.6 K/mm3 (4.0-10.0)
[2018-02-10 15:10] LABS: ALBUMIN 3.9 g/dl (3.4-5.0); ALK PHOS 122 U/L (45-117); ANION GAP 8 MMOL/L (8-16); BILIRUBIN,TOTAL 0.4 mg/dL (0.2-1); BLOOD UREA NITROGEN 29 mg/dL (7-18); CALCIUM 9.4 mg/dL (8.5-10.1); CHLORIDE 103 mmol/L (98-107); CO2 28 mmol/L (21-32); CREATININE 1.1 mg/dL (0.55-1.3); GLUCOSE,RANDOM 100 mg/dL (74-106); POTASSIUM 3.8 mmol/L (3.5-5.1); SGOT/AST 24 U/L (15-37); SGPT/ALT 40 U/L (13-61); SODIUM 139 mmol/L (136-145); TOT PROT 7.1 g/dl (6.4-8.2)
[2018-02-10 15:19] LABS: ALBUMIN 3.9 g/dl (3.4-5.0); BILIRUBIN,DIRECT 0.1 mg/dL (0.0-0.2); BILIRUBIN,TOTAL 0.4 mg/dL (0.2-1); MAGNESIUM 1.7 mg/dL (1.8-2.4); TOT PROT 7.2 g/dl (6.4-8.2)
[2018-02-10 17:26] VITALS: BP 129/71; PULSE 54
[2018-02-10 17:27] VITALS: TEMP 98.2
== END 2018-02-10 15:45 | disposition home or self-care (01) ==
LOC: JONCCHEMO 07:32 → J7W 14:52 → JONCCHEMO 15:45
PROVIDERS: ATTEND Internal Medicine Hematology & Oncology
DX: Z51.11 Encounter for antineoplastic chemotherapy (principal); C50.511 Malignant neoplasm of lower-outer quadrant of right female breast
CPT/HCPCS: 36415; 80053; 80076; 83735; 85025; 96413; J9355

== ENCOUNTER 2018-03-10 06:29 | Day surgery (SDC) | payer OTHER, BC ==
[2018-03-10] MEDS ORDERED: TRASTUZUMAB IVPB ONE (08:00)
[2018-03-10] MEDS ORDERED: SODIUM CHLORIDE IVPB ONE (08:00)
[2018-03-10 14:53] LABS: BASO % 1.4 % (0-2.0); EOS % 12.7 % (0-4.5); HEMATOCRIT 44.4 % (32.4-45.2); HEMOGLOBIN 14.6 GM/dL (10.7-15.3); LYMPH % 23.8 % (8-40); MCH 32.4 pg (25.7-33.7); MCHC 32.8 g/dl (32.0-36.0); MEAN CELL VOLUME 98.7 fl (80-96); MEAN PLT VOLUME 10.1 fl (7.5-11.1); MONO % 7.5 % (3.8-10.2); NEUT % 54.6 % (42.8-82.8); PLATELET COUNT 207 K/MM3 (134-434); RDW 13.6 % (11.6-15.6); WHITE BLOOD COUNT 7.3 K/mm3 (4.0-10.0)
[2018-03-10 15:29] LABS: ALBUMIN 3.7 g/dl (3.4-5.0); ALK PHOS 127 U/L (45-117); ANION GAP 7 MMOL/L (8-16); BILIRUBIN,DIRECT 0.1 mg/dL (0.0-0.2); BILIRUBIN,TOTAL 0.4 mg/dL (0.2-1); BLOOD UREA NITROGEN 24 mg/dL (7-18); CALCIUM 9.6 mg/dL (8.5-10.1); CHLORIDE 104 mmol/L (98-107); CO2 29 mmol/L (21-32); CREATININE 1.1 mg/dL (0.55-1.3); GLUCOSE,RANDOM 97 mg/dL (74-106); MAGNESIUM 1.7 mg/dL (1.8-2.4); SGOT/AST 33 U/L (15-37); SGPT/ALT 52 U/L (13-61); SODIUM 140 mmol/L (136-145); TOT PROT 6.8 g/dl (6.4-8.2)
[2018-03-10] MEDS ORDERED: MAGNESIUM OXIDE 400 MG TABLET (FP) PO ONE (16:00)
[2018-03-10 16:49] VITALS: BP 133/84; PULSE 80; TEMP 97.7
== END 2018-03-10 15:30 | disposition home or self-care (01) ==
LOC: JONCCHEMO 06:29 → J7W 14:30 → JONCCHEMO 15:30
PROVIDERS: ATTEND Internal Medicine Hematology & Oncology
DX: Z51.11 Encounter for antineoplastic chemotherapy (principal); C50.511 Malignant neoplasm of lower-outer quadrant of right female breast
CPT/HCPCS: 36415; 80048; 80076; 82306; 83735; 85025; 86300; 96413; J9355

== ENCOUNTER 2018-03-31 06:39 | Day surgery (SDC) | payer OTHER, BC ==
[2018-03-31] MEDS ORDERED: SODIUM CHLORIDE IVPB ONE (10:00)
[2018-03-31] MEDS ORDERED: TRASTUZUMAB IVPB ONE (10:00)
[2018-03-31 16:00] LABS: ALK PHOS 120 U/L (45-117); ANION GAP 8 MMOL/L (8-16); BILIRUBIN,TOTAL 0.4 mg/dL (0.2-1); BLOOD UREA NITROGEN 28 mg/dL (7-18); CALCIUM 9.7 mg/dL (8.5-10.1); CHLORIDE 102 mmol/L (98-107); CO2 29 mmol/L (21-32); CREATININE 1.2 mg/dL (0.55-1.3); GLUCOSE,RANDOM 98 mg/dL (74-106); MAGNESIUM 1.6 mg/dL (1.8-2.4); POTASSIUM 3.8 mmol/L (3.5-5.1); SGOT/AST 24 U/L (15-37); SGPT/ALT 34 U/L (13-61); SODIUM 138 mmol/L (136-145); TOT PROT 6.9 g/dl (6.4-8.2)
[2018-03-31 16:06] LABS: BASO % 1.2 % (0-2.0); EOS % 9.4 % (0-4.5); HEMATOCRIT 42.2 % (32.4-45.2); HEMOGLOBIN 14.6 GM/dL (10.7-15.3); LYMPH % 26.7 % (8-40); MCH 33.7 pg (25.7-33.7); MCHC 34.5 g/dl (32.0-36.0); MEAN CELL VOLUME 97.6 fl (80-96); MEAN PLT VOLUME 10.2 fl (7.5-11.1); MONO % 7.7 % (3.8-10.2); PLATELET COUNT 212 K/MM3 (134-434); RBC 4.32 M/mm3 (3.60-5.2); RDW 13.3 % (11.6-15.6); WHITE BLOOD COUNT 8.5 K/mm3 (4.0-10.0)
[2018-03-31 16:24] VITALS: BP 124/53; PULSE 53; TEMP 98.1
[2018-03-31] MEDS ORDERED: MAGNESIUM OXIDE 400 MG TABLET (FP) PO ONE (16:35)
== END 2018-03-31 16:48 | disposition home or self-care (01) ==
LOC: JONCCHEMO 06:39 → J7W 15:32 → JONCCHEMO 16:48
PROVIDERS: ATTEND Internal Medicine Hematology & Oncology
DX: Z51.11 Encounter for antineoplastic chemotherapy (principal); C50.511 Malignant neoplasm of lower-outer quadrant of right female breast
CPT/HCPCS: 36415; 80053; 83735; 85025; 96413; J9355

== ENCOUNTER 2018-04-28 07:07 | Day surgery (SDC) | payer OTHER, BC ==
[2018-04-28] MEDS ORDERED: TRASTUZUMAB IVPB ONE (08:00)
[2018-04-28] MEDS ORDERED: SODIUM CHLORIDE IVPB ONE (08:00)
[2018-04-28 14:09] LABS: BASO % 0.9 % (0-2.0); EOS % 8.2 % (0-4.5); HEMOGLOBIN 15.2 GM/dL (10.7-15.3); LYMPH % 16.5 % (8-40); MCH 34.7 pg (25.7-33.7); MCHC 35.4 g/dl (32.0-36.0); MEAN CELL VOLUME 98.1 fl (80-96); MEAN PLT VOLUME 9.7 fl (7.5-11.1); MONO % 6.7 % (3.8-10.2); NEUT % 67.7 % (42.8-82.8); PLATELET COUNT 224 K/MM3 (134-434); RBC 4.38 M/mm3 (3.60-5.2); RDW 13.1 % (11.6-15.6); WHITE BLOOD COUNT 10.1 K/mm3 (4.0-10.0)
[2018-04-28 15:11] LABS: ALBUMIN 3.6 g/dl (3.4-5.0); ALK PHOS 125 U/L (45-117); ANION GAP 4 MMOL/L (8-16); BILIRUBIN,DIRECT 0.1 mg/dL (0.0-0.2); BILIRUBIN,TOTAL 0.4 mg/dL (0.2-1); BLOOD UREA NITROGEN 21 mg/dL (7-18); CALCIUM 9.4 mg/dL (8.5-10.1); CHLORIDE 104 mmol/L (98-107); CO2 30 mmol/L (21-32); CREATININE 1.2 mg/dL (0.55-1.3); GLUCOSE,RANDOM 116 mg/dL (74-106); MAGNESIUM 1.7 mg/dL (1.8-2.4); POTASSIUM 3.8 mmol/L (3.5-5.1); SGOT/AST 30 U/L (15-37); SGPT/ALT 36 U/L (13-61); SODIUM 138 mmol/L (136-145); TOT PROT 6.9 g/dl (6.4-8.2)
[2018-04-28 16:49] VITALS: BP 131/68; PULSE 56; TEMP 97.5
== END 2018-04-28 15:45 | disposition home or self-care (01) ==
LOC: JONCCHEMO 07:07 → J7W 14:37 → JONCCHEMO 15:45
PROVIDERS: ATTEND Internal Medicine Hematology & Oncology
DX: Z51.11 Encounter for antineoplastic chemotherapy (principal); C50.511 Malignant neoplasm of lower-outer quadrant of right female breast
CPT/HCPCS: 36415; 80053; 80076; 83735; 85025; 96413; J9355

== ENCOUNTER 2018-05-19 07:10 | Day surgery (SDC) | payer OTHER, BC ==
[2018-05-19] MEDS ORDERED: TRASTUZUMAB IVPB ONE (10:00)
[2018-05-19] MEDS ORDERED: SODIUM CHLORIDE IVPB ONE (10:00)
[2018-05-19 13:46] LABS: BASO % 1.3 % (0-2.0); EOS % 7.4 % (0-4.5); HEMATOCRIT 42.5 % (32.4-45.2); HEMOGLOBIN 15.1 GM/dL (10.7-15.3); LYMPH % 16.8 % (8-40); MCH 34.9 pg (25.7-33.7); MCHC 35.4 g/dl (32.0-36.0); MEAN CELL VOLUME 98.4 fl (80-96); MEAN PLT VOLUME 9.6 fl (7.5-11.1); MONO % 9.6 % (3.8-10.2); NEUT % 64.9 % (42.8-82.8); PLATELET COUNT 180 K/MM3 (134-434); RBC 4.32 M/mm3 (3.60-5.2); RDW 13.1 % (11.6-15.6); WHITE BLOOD COUNT 7.8 K/mm3 (4.0-10.0)
[2018-05-19 14:16] LABS: ANION GAP 6 MMOL/L (8-16); BLOOD UREA NITROGEN 26 mg/dL (7-18); CALCIUM 9.4 mg/dL (8.5-10.1); CHLORIDE 103 mmol/L (98-107); CO2 27 mmol/L (21-32); GLUCOSE,RANDOM 114 mg/dL (74-106); POTASSIUM 3.8 mmol/L (3.5-5.1); SODIUM 137 mmol/L (136-145)
[2018-05-19 18:16] VITALS: BP 123/60; PULSE 57; TEMP 97.9
== END 2018-05-19 15:15 | disposition home or self-care (01) ==
LOC: JONCCHEMO 07:10 → J7W 14:29 → JONCCHEMO 15:15
PROVIDERS: ATTEND Internal Medicine Hematology & Oncology
DX: Z51.11 Encounter for antineoplastic chemotherapy (principal); C50.511 Malignant neoplasm of lower-outer quadrant of right female breast
CPT/HCPCS: 36415; 80048; 85025; 96413; J9355

== ENCOUNTER 2018-06-09 07:11 | Day surgery (SDC) | payer OTHER, BC ==
[2018-06-09] MEDS ORDERED: TRASTUZUMAB IVPB ONE (09:00)
[2018-06-09] MEDS ORDERED: SODIUM CHLORIDE IVPB ONE (09:00)
[2018-06-09 14:01] LABS: BASO % 1.4 % (0-2.0); EOS % 8.6 % (0-4.5); HEMATOCRIT 42.7 % (32.4-45.2); HEMOGLOBIN 14.4 GM/dL (10.7-15.3); LYMPH % 21.1 % (8-40); MCH 32.7 pg (25.7-33.7); MCHC 33.7 g/dl (32.0-36.0); MEAN CELL VOLUME 97.3 fl (80-96); MEAN PLT VOLUME 9.7 fl (7.5-11.1); MONO % 6.2 % (3.8-10.2); NEUT % 62.7 % (42.8-82.8); PLATELET COUNT 270 K/MM3 (134-434); RBC 4.39 M/mm3 (3.60-5.2); WHITE BLOOD COUNT 7.2 K/mm3 (4.0-10.0)
[2018-06-09 14:35] LABS: ALBUMIN 3.6 g/dl (3.4-5.0); ALBUMIN 3.8 g/dl (3.4-5.0); ALK PHOS 131 U/L (45-117); ANION GAP 9 MMOL/L (8-16); BILIRUBIN,DIRECT 0.1 mg/dL (0.0-0.2); BILIRUBIN,TOTAL 0.4 mg/dL (0.2-1); BLOOD UREA NITROGEN 24 mg/dL (7-18); CALCIUM 9.8 mg/dL (8.5-10.1); CHLORIDE 103 mmol/L (98-107); CO2 26 mmol/L (21-32); CREATININE 1.2 mg/dL (0.55-1.3); GLUCOSE,RANDOM 132 mg/dL (74-106); MAGNESIUM 1.7 mg/dL (1.8-2.4); POTASSIUM 4.3 mmol/L (3.5-5.1); SGOT/AST 25 U/L (15-37); SGPT/ALT 35 U/L (13-61); SODIUM 138 mmol/L (136-145); TOT PROT 7.2 g/dl (6.4-8.2)
[2018-06-09 16:39] VITALS: BP 99/43; PULSE 53; TEMP 97.9
== END 2018-06-09 15:30 | disposition home or self-care (01) ==
LOC: JONCCHEMO 07:11 → J7W 14:24 → JONCCHEMO 15:30
PROVIDERS: ATTEND Internal Medicine Hematology & Oncology
DX: Z51.11 Encounter for antineoplastic chemotherapy (principal); C50.511 Malignant neoplasm of lower-outer quadrant of right female breast
CPT/HCPCS: 36415; 80053; 80076; 83735; 85025; 96413; J9355

== ENCOUNTER 2018-06-30 07:13 | Day surgery (SDC) | payer OTHER, BC ==
[2018-06-30] MEDS ORDERED: SODIUM CHLORIDE IVPB ONE (10:00)
[2018-06-30] MEDS ORDERED: TRASTUZUMAB IVPB ONE (10:00)
[2018-06-30] MEDS ORDERED: MAGNESIUM OXIDE 400 MG TABLET (FP) PO ONE (15:15)
[2018-06-30 15:44] VITALS: BP 119/56; PULSE 51; TEMP 97.9
== END 2018-06-30 15:30 | disposition home or self-care (01) ==
LOC: JONCCHEMO 07:13 → J7W 14:28 → JONCCHEMO 15:30
PROVIDERS: ATTEND Internal Medicine Hematology & Oncology
DX: Z51.11 Encounter for antineoplastic chemotherapy (principal); C50.511 Malignant neoplasm of lower-outer quadrant of right female breast
CPT/HCPCS: 36415; 80048; 80076; 83735; 85025; 96413; J9355

== ENCOUNTER 2018-07-30 07:10 | Day surgery (SDC) | payer OTHER, BC ==
[2018-07-30] MEDS ORDERED: SODIUM CHLORIDE IVPB ONE (10:00)
[2018-07-30] MEDS ORDERED: TRASTUZUMAB IVPB ONE (10:00)
[2018-07-30 12:19] LABS: BASO % 1.3 % (0-2.0); EOS % 8.5 % (0-4.5); HEMATOCRIT 41.3 % (32.4-45.2); HEMOGLOBIN 13.8 GM/dL (10.7-15.3); LYMPH % 15.8 % (8-40); MCH 32.9 pg (25.7-33.7); MCHC 33.5 g/dl (32.0-36.0); MEAN CELL VOLUME 98.2 fl (80-96); MEAN PLT VOLUME 9.7 fl (7.5-11.1); MONO % 5.2 % (3.8-10.2); NEUT % 69.2 % (42.8-82.8); PLATELET COUNT 223 K/MM3 (134-434); RDW 13.3 % (11.6-15.6); WHITE BLOOD COUNT 8.3 K/mm3 (4.0-10.0)
[2018-07-30 13:52] LABS: CREATININE 1.2 mg/dL (0.55-1.3)
[2018-07-30 13:53] LABS: ALBUMIN 3.7 g/dl (3.4-5.0); BILIRUBIN,DIRECT 0.1 mg/dL (0.0-0.2); BILIRUBIN,TOTAL 0.4 mg/dL (0.2-1); CALCIUM 9.4 mg/dL (8.5-10.1); MAGNESIUM 1.7 mg/dL (1.8-2.4); POTASSIUM 3.4 mmol/L (3.5-5.1); TOT PROT 6.7 g/dl (6.4-8.2)
[2018-07-30 15:54] VITALS: BP 143/51; PULSE 53; TEMP 97.9
== END 2018-07-30 14:30 | disposition home or self-care (01) ==
LOC: JONCCHEMO 07:10 → J7W 12:58 → JONCCHEMO 14:30
PROVIDERS: ATTEND Internal Medicine Hematology & Oncology
DX: Z51.11 Encounter for antineoplastic chemotherapy (principal); C50.511 Malignant neoplasm of lower-outer quadrant of right female breast
CPT/HCPCS: 36415; 80048; 80076; 83735; 85025; 96413; 96417; J9355

== ENCOUNTER 2018-08-09 13:13 | Emergency (ER) | payer OTHER, BC ==
[2018-08-09 13:47] VITALS: BP 122/78; PULSE 58; TEMP 97.7; BMI 25.4
[2018-08-09] MEDS ORDERED: ACETAMINOPHEN 325 MG TABLET (FP) PO ONE (14:22)
--- NOTE | 2018-08-09 14:22 | PDOC ---
History of Present Illness - General Chief Complaint: Injury Stated Complaint: LEFT KNEE PAIN Time Seen by Provider: 08/09/18 13:52 History Source: Patient Exam Limitations: No Limitations - History of Present Illness Initial Comments: 08/09/18 15:41 77y F presents with L knee pain. Pt was going up her aittic stairs when she lost her balance, stepped backwards with her L leg and developed L knee pain. Pt notse she did fall, but didnt injury anything else with no pain head injury, loc, neck pain, back pain. Pt dneis any nubnss/tinglingweakness. no hip pain or ankel pain. ROS: General: nof ever/chills CArd: denies cp, ureña Respiration: denies cough, sob, ureña abd: denes n/v, abd pain msk: +R knee pain neuro: denies numbness/tingling/ewakness Physical exam: Back: No midline tenderness to the cervical, thoracic or lumbar spine Musculoskelatal: FROM of b/l shoulders, elbows, wrist. FROM of hips, knees, ankles - No signs of ecchymosis, erythema, or crepitus noted on palpation extremities, chest wall, clavicals, ribs, back. Mild diffuse tenderness to the lateral aspects of the knee, negative anterior posterior drawer, no pain on valgus or varus stress Past History - Past Medical History Allergies/Adverse Reactions: Allergies Allergy/AdvReac Type Severity Reaction Status Date / Time No Known Allergies Allergy Verified 08/27/16 15:19 Home Medications: Ambulatory Orders Aspirin [ASA -] 81 mg PO DAILY 11/27/16 Hydrochlorothiazide [Hctz -] 25 mg PO DAILY 11/27/16 Letrozole [Femara] 2.5 mg PO DAILY 11/27/16 Levothyroxine [Synthroid -] 75 mcg PO DAILY 11/27/16 Metoprolol Tartrate [Lopressor] 100 mg PO BID 11/27/16 Potassium Chloride 8 meq PO DAILY 11/27/16 Cancer: Yes (BREAST) COPD: No Thyroid Disease: Yes - Suicide/Smoking/Psychosocial Hx Smoking History: Current every day smoker Have you smoked in the past 12 months: Yes Number of Cigarettes Smoked Daily: 10 Information on smoking cessation initiated: Yes Hx Alcohol Use: No Drug/Substance Use Hx: No *Physical Exam - Vital Signs Last Vital Signs Temp Pulse Resp BP Pulse Ox 97.7 F 58 L 20 122/78 100 08/09/18 13:14 08/09/18 13:14 08/09/18 13:14 08/09/18 13:14 08/09/18 13:14 ED Treatment Course - RADIOLOGY Radiology Studies Ordered: Category Date Time Status KNEE 2 POS-LEFT [RAD] Stat Radiology 08/09/18 13:53 Ordered Medical Decision Making - Medical Decision Making 08/09/18 15:46 xray ntoed for lateral plateu fracture will dw ortho 08/09/18 16:45 discussed with ortho recommends CT and knee immobilizer and fu with dr. Masterson office on saturday I discussed the physical exam findings, ancillary test results and final diagnoses with the patient. I answered all of the patient's questions. The patient was satisfied with the care received and felt comfortable with the discharge plan and treatment plan. The patient will call their primary care physician within 24 hours to arrange follow-up and will return to the Emergency Department with any new, persistent or worsening symptoms. *DC/Admit/Observation/Transfer Diagnosis at time of Disposition: Tibial plateau fracture, left Qualifiers: Encounter type: initial encounter Fracture type: closed Qualified Code(s): S82.142A - Displaced bicondylar fracture of left tibia, initial encounter for closed fracture - Discharge Dispostion Condition at time of disposition: Improved Decision to Admit order: No - Referrals Referrals: Jeremy Espinosa MD [Staff Physician] - - Patient Instructions Printed Discharge Instructions: DI for Tibial Plateau Fracture Additional Instructions: Return to the emergency department immediately with ANY new, persistent or worsening symptoms looting any worsening pain, numbness, tingling, or any other concerns. Keep the knee immobilizer on. You MUST call and follow up with your Dr. Espinosa/Randolph on saturday in their office for further evaluation of your symptoms. Results were discussed with you. Please make sure your doctor reviews the results of your emergency evaluation. - Post Discharge Activity
[2018-08-09] MEDS ORDERED: ACETAMINOPHEN 325 MG TABLET (FP) ONE (14:59)
== END 2018-08-09 18:46 | disposition home or self-care (01) ==
LOC: FER 13:13
PROC: 2W3RX1Z Immobilization of Left Lower Leg using Splint (ICD-10-PCS; principal; 2018-08-09)
DX: S82.142A Displaced bicondylar fracture of left tibia, initial encounter for closed fracture (principal); W18.39XA Other fall on same level, initial encounter; Y93.89 Activity, other specified; Y92.89 Other specified places as the place of occurrence of the external cause; F17.210 Nicotine dependence, cigarettes, uncomplicated; Z85.3 Personal history of malignant neoplasm of breast; E07.9 Disorder of thyroid, unspecified
CPT/HCPCS: 73560-TC-LT-FY; 73700-TC-RT; 99282-25

== ENCOUNTER 2018-08-20 07:17 | Day surgery (SDC) | payer OTHER, BC ==
[2018-08-20] MEDS ORDERED: TRASTUZUMAB IVPB ONE (09:00)
[2018-08-20] MEDS ORDERED: SODIUM CHLORIDE IVPB ONE (09:00)
[2018-08-20 11:30] LABS: BASO % 0.9 % (0-2.0); EOS % 6.8 % (0-4.5); HEMATOCRIT 37.7 % (32.4-45.2); LYMPH % 17.5 % (8-40); MCH 33.2 pg (25.7-33.7); MCHC 34.5 g/dl (32.0-36.0); MEAN CELL VOLUME 96.2 fl (80-96); MEAN PLT VOLUME 8.8 fl (7.5-11.1); MONO % 5.9 % (3.8-10.2); NEUT % 68.9 % (42.8-82.8); PLATELET COUNT 338 K/MM3 (134-434); RBC 3.92 M/mm3 (3.60-5.2); RDW 13.1 % (11.6-15.6); WHITE BLOOD COUNT 9.3 K/mm3 (4.0-10.0)
[2018-08-20 11:51] LABS: ALBUMIN 3.6 g/dl (3.4-5.0); BILIRUBIN,DIRECT 0.2 mg/dL (0.0-0.2); BILIRUBIN,TOTAL 0.8 mg/dL (0.2-1); BLOOD UREA NITROGEN 20.2 mg/dL (7-18); CALCIUM 9.4 mg/dL (8.5-10.1); CREATININE 1.4 mg/dL (0.55-1.3); MAGNESIUM 1.9 mg/dL (1.8-2.4); POTASSIUM 3.3 mmol/L (3.5-5.1); TOT PROT 6.6 g/dl (6.4-8.2)
[2018-08-20] MEDS ORDERED: POTASSIUM CHLORIDE TABS 20 MEQ TABLET.ER (FP) PO ONE (12:45)
[2018-08-20 18:46] VITALS: BP 150/72; PULSE 62
[2018-08-20 18:47] VITALS: TEMP 98.5
== END 2018-08-20 14:00 | disposition home or self-care (01) ==
LOC: JONCCHEMO 07:17 → J7W 12:06 → JONCCHEMO 14:00
PROVIDERS: ATTEND Internal Medicine Hematology & Oncology
DX: Z51.11 Encounter for antineoplastic chemotherapy (principal); C50.511 Malignant neoplasm of lower-outer quadrant of right female breast
CPT/HCPCS: 36415; 80048; 80076; 83735; 85025; 96413; J9355

== ENCOUNTER 2018-09-10 06:52 | Day surgery (SDC) | payer OTHER, BC ==
[2018-09-10] MEDS ORDERED: TRASTUZUMAB IVPB ONE (10:00)
[2018-09-10] MEDS ORDERED: SODIUM CHLORIDE IVPB ONE (10:00)
[2018-09-10 12:10] LABS: BASO % 1.1 % (0-2.0); EOS % 7.4 % (0-4.5); HEMATOCRIT 40.4 % (32.4-45.2); HEMOGLOBIN 13.9 GM/dL (10.7-15.3); LYMPH % 17.4 % (8-40); MCH 33.7 pg (25.7-33.7); MCHC 34.4 g/dl (32.0-36.0); MEAN CELL VOLUME 97.7 fl (80-96); MEAN PLT VOLUME 10.2 fl (7.5-11.1); NEUT % 68.1 % (42.8-82.8); RBC 4.13 M/mm3 (3.60-5.2); RDW 13.4 % (11.6-15.6); WHITE BLOOD COUNT 9.5 K/mm3 (4.0-10.0)
[2018-09-10 12:35] LABS: ALBUMIN 3.7 g/dl (3.4-5.0); BILIRUBIN,DIRECT 0.1 mg/dL (0.0-0.2); BILIRUBIN,TOTAL 0.4 mg/dL (0.2-1); BLOOD UREA NITROGEN 17.6 mg/dL (7-18); CALCIUM 9.7 mg/dL (8.5-10.1); CREATININE 1.3 mg/dL (0.55-1.3); MAGNESIUM 1.8 mg/dL (1.8-2.4); POTASSIUM 3.6 mmol/L (3.5-5.1); TOT PROT 6.8 g/dl (6.4-8.2)
[2018-09-10 12:50] LABS: PLATELET COUNT 225 K/MM3 (134-434)
[2018-09-10 15:49] VITALS: BP 170/77; PULSE 56; TEMP 98.1
== END 2018-09-10 14:30 | disposition home or self-care (01) ==
LOC: JONCCHEMO 06:52 → J7W 12:58 → JONCCHEMO 14:30
PROVIDERS: ATTEND Internal Medicine Hematology & Oncology
DX: Z51.11 Encounter for antineoplastic chemotherapy (principal); C50.511 Malignant neoplasm of lower-outer quadrant of right female breast
CPT/HCPCS: 36415; 80048; 80076; 83735; 85025; 96413; J9355

== ENCOUNTER 2018-10-08 07:17 | Day surgery (SDC) | payer OTHER, BC | END 2018-10-08 13:00 | disposition home or self-care (01) | LOC: JONCCHEMO 07:17 → JERBED 11:48 → J7W 11:48 → JONCCHEMO 13:00 ==

== ENCOUNTER 2018-10-29 07:12 | Day surgery (SDC) | payer OTHER, BC ==
[2018-10-29] MEDS ORDERED: TRASTUZUMAB IVPB ONE (10:00)
[2018-10-29] MEDS ORDERED: SODIUM CHLORIDE IVPB ONE (10:00)
[2018-10-29 10:49] LABS: BASO % 1.3 % (0-2.0); EOS % 13.5 % (0-4.5); HEMATOCRIT 37.6 % (32.4-45.2); HEMOGLOBIN 12.9 GM/dL (10.7-15.3); LYMPH % 21.4 % (8-40); MCH 33.3 pg (25.7-33.7); MCHC 34.3 g/dl (32.0-36.0); MEAN CELL VOLUME 97.1 fl (80-96); MEAN PLT VOLUME 9.4 fl (7.5-11.1); MONO % 7.4 % (3.8-10.2); NEUT % 56.4 % (42.8-82.8); PLATELET COUNT 230 K/MM3 (134-434); RBC 3.87 M/mm3 (3.60-5.2); RDW 13.8 % (11.6-15.6); WHITE BLOOD COUNT 8.2 K/mm3 (4.0-10.0)
[2018-10-29 11:27] LABS: ALBUMIN 3.5 g/dl (3.4-5.0); BILIRUBIN,DIRECT 0.1 mg/dL (0.0-0.2); BILIRUBIN,TOTAL 0.3 mg/dL (0.2-1); BLOOD UREA NITROGEN 23.3 mg/dL (7-18); CALCIUM 9.7 mg/dL (8.5-10.1); CREATININE 1.2 mg/dL (0.55-1.3); MAGNESIUM 1.9 mg/dL (1.8-2.4); POTASSIUM 3.8 mmol/L (3.5-5.1); TOT PROT 6.6 g/dl (6.4-8.2)
[2018-10-29 13:22] VITALS: BP 140/59; PULSE 47; TEMP 97.9
== END 2018-10-29 12:55 | disposition home or self-care (01) ==
LOC: JONCCHEMO 07:12 → J7W 11:43 → JONCCHEMO 12:55
PROVIDERS: ATTEND Internal Medicine Hematology & Oncology
DX: Z51.11 Encounter for antineoplastic chemotherapy (principal); C50.511 Malignant neoplasm of lower-outer quadrant of right female breast
CPT/HCPCS: 36415; 80048; 80076; 83735; 85025; 96413; J9355

== ENCOUNTER 2018-11-19 05:41 | Day surgery (SDC) | payer OTHER, BC ==
[2018-11-19] MEDS ORDERED: TRASTUZUMAB IVPB ONE (10:00)
[2018-11-19] MEDS ORDERED: SODIUM CHLORIDE IVPB ONE (10:00)
[2018-11-19 12:44] LABS: BASO % 1.6 % (0-2.0); EOS % 10.6 % (0-4.5); HEMATOCRIT 40.1 % (32.4-45.2); HEMOGLOBIN 13.5 GM/dL (10.7-15.3); LYMPH % 19.4 % (8-40); MCHC 33.7 g/dl (32.0-36.0); MEAN PLT VOLUME 10.3 fl (7.5-11.1); MONO % 7.5 % (3.8-10.2); NEUT % 60.9 % (42.8-82.8); PLATELET COUNT 225 K/MM3 (134-434); RBC 4.09 M/mm3 (3.60-5.2); RDW 13.8 % (11.6-15.6); WHITE BLOOD COUNT 8.6 K/mm3 (4.0-10.0)
[2018-11-19 13:08] LABS: BILIRUBIN,DIRECT 0.1 mg/dL (0.0-0.2); BILIRUBIN,TOTAL 0.5 mg/dL (0.2-1); BLOOD UREA NITROGEN 25.4 mg/dL (7-18); CALCIUM 10.5 mg/dL (8.5-10.1); CREATININE 1.3 mg/dL (0.55-1.3); MAGNESIUM 1.8 mg/dL (1.8-2.4); POTASSIUM 3.8 mmol/L (3.5-5.1); TOT PROT 6.9 g/dl (6.4-8.2)
[2018-11-19 17:54] VITALS: BP 104/59; PULSE 55; TEMP 98
== END 2018-11-19 14:50 | disposition home or self-care (01) ==
LOC: JONCCHEMO 05:41 → J7W 12:52 → JONCCHEMO 14:50
PROVIDERS: ATTEND Internal Medicine Hematology & Oncology
DX: Z51.11 Encounter for antineoplastic chemotherapy (principal); C50.511 Malignant neoplasm of lower-outer quadrant of right female breast; I10 Essential (primary) hypertension; M19.91 Primary osteoarthritis, unspecified site; E03.9 Hypothyroidism, unspecified; Z72.0 Tobacco use
CPT/HCPCS: 36415; 80048; 80076; 83735; 85025; 96413; J9355

== ENCOUNTER 2018-12-10 07:26 | Day surgery (SDC) | payer OTHER, BC ==
[2018-12-10] MEDS ORDERED: TRASTUZUMAB IVPB ONE (09:00)
[2018-12-10] MEDS ORDERED: SODIUM CHLORIDE IVPB ONE (09:00)
[2018-12-10 12:01] LABS: EOS % 8.4 % (0-4.5); HEMATOCRIT 40.5 % (32.4-45.2); HEMOGLOBIN 13.8 GM/dL (10.7-15.3); LYMPH % 17.1 % (8-40); MCH 33.5 pg (25.7-33.7); MEAN CELL VOLUME 98.7 fl (80-96); MEAN PLT VOLUME 9.9 fl (7.5-11.1); MONO % 5.7 % (3.8-10.2); NEUT % 66.8 % (42.8-82.8); PLATELET COUNT 269 K/MM3 (134-434); RBC 4.11 M/mm3 (3.60-5.2); RDW 13.3 % (11.6-15.6); WHITE BLOOD COUNT 8.2 K/mm3 (4.0-10.0)
[2018-12-10 12:33] LABS: ALBUMIN 3.6 g/dl (3.4-5.0); BILIRUBIN,TOTAL 0.4 mg/dL (0.2-1); BLOOD UREA NITROGEN 20.3 mg/dL (7-18); CALCIUM 9.8 mg/dL (8.5-10.1); CREATININE 1.4 mg/dL (0.55-1.3); MAGNESIUM 1.7 mg/dL (1.8-2.4); POTASSIUM 3.7 mmol/L (3.5-5.1); TOT PROT 6.9 g/dl (6.4-8.2)
[2018-12-10 17:37] VITALS: BP 123/65; PULSE 76; TEMP 97.4
== END 2018-12-10 14:05 | disposition home or self-care (01) ==
LOC: JONCCHEMO 07:26 → J7W 13:38 → JONCCHEMO 14:05
PROVIDERS: ATTEND Internal Medicine Hematology & Oncology
DX: Z51.11 Encounter for antineoplastic chemotherapy (principal); C50.511 Malignant neoplasm of lower-outer quadrant of right female breast; I10 Essential (primary) hypertension; M19.90 Unspecified osteoarthritis, unspecified site; E03.9 Hypothyroidism, unspecified; F17.210 Nicotine dependence, cigarettes, uncomplicated
CPT/HCPCS: 36415; 80053; 83735; 85025; 96413; J9355

== ENCOUNTER 2018-12-31 05:33 | Day surgery (SDC) | payer OTHER, BC ==
[2018-12-31] MEDS ORDERED: SODIUM CHLORIDE IVPB ONE (10:00)
[2018-12-31] MEDS ORDERED: TRASTUZUMAB IVPB ONE (10:00)
[2018-12-31 12:09] LABS: BASO % 1.4 % (0-2.0); EOS % 10.9 % (0-4.5); HEMATOCRIT 40.8 % (32.4-45.2); HEMOGLOBIN 13.7 GM/dL (10.7-15.3); MCH 33.1 pg (25.7-33.7); MCHC 33.5 g/dl (32.0-36.0); MEAN CELL VOLUME 98.7 fl (80-96); MEAN PLT VOLUME 9.7 fl (7.5-11.1); MONO % 6.1 % (3.8-10.2); NEUT % 62.6 % (42.8-82.8); PLATELET COUNT 231 K/MM3 (134-434); RBC 4.14 M/mm3 (3.60-5.2); RDW 13.2 % (11.6-15.6); WHITE BLOOD COUNT 7.1 K/mm3 (4.0-10.0)
[2018-12-31 12:34] LABS: ALBUMIN 3.5 g/dl (3.4-5.0); BILIRUBIN,TOTAL 0.3 mg/dL (0.2-1); BLOOD UREA NITROGEN 22.3 mg/dL (7-18); CALCIUM 9.8 mg/dL (8.5-10.1); CREATININE 1.3 mg/dL (0.55-1.3); MAGNESIUM 1.7 mg/dL (1.8-2.4); POTASSIUM 3.6 mmol/L (3.5-5.1); TOT PROT 6.6 g/dl (6.4-8.2)
[2018-12-31] MEDS ORDERED: MAGNESIUM OXIDE 400 MG TABLET (FP) PO ONE (13:45)
[2018-12-31 14:49] VITALS: BP 89/58; PULSE 108; TEMP 97.5
== END 2018-12-31 14:00 | disposition home or self-care (01) ==
LOC: JONCCHEMO 05:33 → J7W 13:09 → JONCCHEMO 14:00
PROVIDERS: ATTEND Internal Medicine Hematology & Oncology
DX: Z51.11 Encounter for antineoplastic chemotherapy (principal); C50.511 Malignant neoplasm of lower-outer quadrant of right female breast; I10 Essential (primary) hypertension; E03.9 Hypothyroidism, unspecified; M19.90 Unspecified osteoarthritis, unspecified site
CPT/HCPCS: 36415; 80053; 83735; 85025; 96413; J9355

== ENCOUNTER 2019-01-21 07:16 | Day surgery (SDC) | payer OTHER, BC ==
[2019-01-21] MEDS ORDERED: TRASTUZUMAB-ANNS 360 MG in SODIUM CHLORIDE 250 ML IVPB ONE (10:00)
[2019-01-21 12:20] LABS: BASO % 2.6 % (0-2.0); EOS % 12.7 % (0-4.5); HEMATOCRIT 42.6 % (32.4-45.2); HEMOGLOBIN 14.5 GM/dL (10.7-15.3); LYMPH % 25.4 % (8-40); MCH 32.7 pg (25.7-33.7); MEAN CELL VOLUME 96.1 fl (80-96); MEAN PLT VOLUME 9.8 fl (7.5-11.1); NEUT % 51.3 % (42.8-82.8); PLATELET COUNT 228 K/MM3 (134-434); RBC 4.43 M/mm3 (3.60-5.2); WHITE BLOOD COUNT 6.8 K/mm3 (4.0-10.0)
[2019-01-21 12:44] LABS: ALBUMIN 3.6 g/dl (3.4-5.0); BILIRUBIN,TOTAL 0.4 mg/dL (0.2-1); BLOOD UREA NITROGEN 18.9 mg/dL (7-18); CALCIUM 10.1 mg/dL (8.5-10.1); CREATININE 1.3 mg/dL (0.55-1.3); MAGNESIUM 2.1 mg/dL (1.8-2.4); TOT PROT 6.8 g/dl (6.4-8.2)
[2019-01-21 17:10] VITALS: BP 141/82; PULSE 53
[2019-01-21 17:11] VITALS: TEMP 97.6
== END 2019-01-21 14:00 | disposition home or self-care (01) ==
LOC: JONCCHEMO 07:16 → J7W 12:30 → JONCCHEMO 14:00
PROVIDERS: ATTEND Internal Medicine Hematology & Oncology
DX: Z51.11 Encounter for antineoplastic chemotherapy (principal); C50.511 Malignant neoplasm of lower-outer quadrant of right female breast; I10 Essential (primary) hypertension; E03.9 Hypothyroidism, unspecified; M19.90 Unspecified osteoarthritis, unspecified site
CPT/HCPCS: 36415; 80053; 83735; 85025; 96413; Q5117

== ENCOUNTER 2019-02-11 06:57 | Day surgery (SDC) | payer OTHER, BC ==
[2019-02-11] MEDS ORDERED: TRASTUZUMAB ANNS IVPB ONE (10:00)
[2019-02-11] MEDS ORDERED: SODIUM CHLORIDE IVPB ONE (10:00)
[2019-02-11 12:20] LABS: BASO % 1.5 % (0-2.0); EOS % 11.6 % (0-4.5); HEMATOCRIT 41.6 % (32.4-45.2); HEMOGLOBIN 14.3 GM/dL (10.7-15.3); MCH 33.1 pg (25.7-33.7); MCHC 34.3 g/dl (32.0-36.0); MEAN CELL VOLUME 96.6 fl (80-96); MEAN PLT VOLUME 9.7 fl (7.5-11.1); NEUT % 56.9 % (42.8-82.8); PLATELET COUNT 221 K/MM3 (134-434); RBC 4.31 M/mm3 (3.60-5.2); WHITE BLOOD COUNT 6.7 K/mm3 (4.0-10.0)
[2019-02-11 12:33] LABS: ALBUMIN 3.5 g/dl (3.4-5.0); BILIRUBIN,TOTAL 0.4 mg/dL (0.2-1); BLOOD UREA NITROGEN 17.4 mg/dL (7-18); CALCIUM 10.1 mg/dL (8.5-10.1); CREATININE 1.2 mg/dL (0.55-1.3); MAGNESIUM 1.7 mg/dL (1.8-2.4); POTASSIUM 4.2 mmol/L (3.5-5.1); TOT PROT 6.8 g/dl (6.4-8.2)
[2019-02-11 17:10] VITALS: BP 141/77; PULSE 54; TEMP 98.4
== END 2019-02-11 14:55 | disposition home or self-care (01) ==
LOC: JONCCHEMO 06:57 → J7W 12:24 → JONCCHEMO 14:55
PROVIDERS: ATTEND Internal Medicine Hematology & Oncology
DX: Z51.11 Encounter for antineoplastic chemotherapy (principal); C50.511 Malignant neoplasm of lower-outer quadrant of right female breast; M19.90 Unspecified osteoarthritis, unspecified site; I10 Essential (primary) hypertension; Z72.0 Tobacco use
CPT/HCPCS: 36415; 80053; 83735; 85025; 86300; 96413; Q5117

== ENCOUNTER 2019-03-11 05:38 | Day surgery (SDC) | payer OTHER, BC ==
[2019-03-11] MEDS ORDERED: SODIUM CHLORIDE IVPB ONE (10:00)
[2019-03-11] MEDS ORDERED: TRASTUZUMAB ANNS IVPB ONE (10:00)
[2019-03-11 11:37] LABS: BASO % 1.1 % (0-2.0); EOS % 6.3 % (0-4.5); HEMATOCRIT 43.6 % (32.4-45.2); HEMOGLOBIN 14.6 GM/dL (10.7-15.3); LYMPH % 17.4 % (8-40); MCH 32.5 pg (25.7-33.7); MCHC 33.4 g/dl (32.0-36.0); MEAN CELL VOLUME 97.6 fl (80-96); MEAN PLT VOLUME 9.9 fl (7.5-11.1); MONO % 7.2 % (3.8-10.2); PLATELET COUNT 244 K/MM3 (134-434); RBC 4.47 M/mm3 (3.60-5.2); RDW 13.3 % (11.6-15.6)
[2019-03-11 12:10] LABS: ALBUMIN 3.6 g/dl (3.4-5.0); BILIRUBIN,TOTAL 0.4 mg/dL (0.2-1); BLOOD UREA NITROGEN 24.6 mg/dL (7-18); CALCIUM 9.8 mg/dL (8.5-10.1); CREATININE 1.2 mg/dL (0.55-1.3); MAGNESIUM 1.9 mg/dL (1.8-2.4); TOT PROT 6.9 g/dl (6.4-8.2)
[2019-03-11 16:38] VITALS: BP 138/64; PULSE 49; TEMP 97.8
== END 2019-03-11 14:45 | disposition home or self-care (01) ==
LOC: JONCCHEMO 05:38 → J7W 12:52 → JONCCHEMO 14:45
PROVIDERS: ATTEND Internal Medicine Hematology & Oncology
DX: Z51.11 Encounter for antineoplastic chemotherapy (principal); C50.511 Malignant neoplasm of lower-outer quadrant of right female breast; M19.90 Unspecified osteoarthritis, unspecified site
CPT/HCPCS: 36415; 80053; 83735; 85025; 96413; Q5117

== ENCOUNTER 2019-04-01 07:06 | Day surgery (SDC) | payer OTHER, BC ==
[2019-04-01] MEDS ORDERED: TRASTUZUMAB ANNS IVPB ONE (10:00)
[2019-04-01] MEDS ORDERED: SODIUM CHLORIDE IVPB ONE (10:00)
[2019-04-01 11:39] LABS: BASO % 1.3 % (0-2.0); EOS % 7.5 % (0-4.5); HEMATOCRIT 41.9 % (32.4-45.2); HEMOGLOBIN 14.1 GM/dL (10.7-15.3); MCH 32.4 pg (25.7-33.7); MCHC 33.6 g/dl (32.0-36.0); MEAN CELL VOLUME 96.5 fl (80-96); MEAN PLT VOLUME 9.6 fl (7.5-11.1); MONO % 4.7 % (3.8-10.2); NEUT % 70.5 % (42.8-82.8); PLATELET COUNT 278 K/MM3 (134-434); RBC 4.35 M/mm3 (3.60-5.2); RDW 13.3 % (11.6-15.6)
[2019-04-01 12:08] LABS: ALBUMIN 3.4 g/dl (3.4-5.0); BILIRUBIN,TOTAL 0.5 mg/dL (0.2-1); BLOOD UREA NITROGEN 22.4 mg/dL (7-18); CALCIUM 9.9 mg/dL (8.5-10.1); CREATININE 1.2 mg/dL (0.55-1.3); MAGNESIUM 1.8 mg/dL (1.8-2.4); POTASSIUM 3.9 mmol/L (3.5-5.1); TOT PROT 6.7 g/dl (6.4-8.2)
[2019-04-01 16:53] VITALS: BP 144/72; PULSE 48; TEMP 97.5
== END 2019-04-01 14:00 | disposition home or self-care (01) ==
LOC: JONCCHEMO 07:06 → J7W 12:28 → JONCCHEMO 14:00
PROVIDERS: ATTEND Internal Medicine Hematology & Oncology
DX: Z51.11 Encounter for antineoplastic chemotherapy (principal); C50.511 Malignant neoplasm of lower-outer quadrant of right female breast; M81.0 Age-related osteoporosis without current pathological fracture; Z72.0 Tobacco use
CPT/HCPCS: 36415; 80053; 83735; 85025; 96413; Q5117

== ENCOUNTER 2019-04-22 05:55 | Day surgery (SDC) | payer OTHER, BC ==
[2019-04-22] MEDS ORDERED: SODIUM CHLORIDE IVPB ONE (10:00)
[2019-04-22] MEDS ORDERED: TRASTUZUMAB ANNS IVPB ONE (10:00)
[2019-04-22 11:42] LABS: BASO % 1.2 % (0-2.0); EOS % 8.1 % (0-4.5); HEMATOCRIT 42.3 % (32.4-45.2); HEMOGLOBIN 14.5 GM/dL (10.7-15.3); LYMPH % 17.8 % (8-40); MCH 32.9 pg (25.7-33.7); MCHC 34.4 g/dl (32.0-36.0); MEAN CELL VOLUME 95.8 fl (80-96); MEAN PLT VOLUME 9.8 fl (7.5-11.1); MONO % 4.8 % (3.8-10.2); NEUT % 68.1 % (42.8-82.8); PLATELET COUNT 220 K/MM3 (134-434); RBC 4.42 M/mm3 (3.60-5.2); RDW 13.4 % (11.6-15.6); WHITE BLOOD COUNT 8.1 K/mm3 (4.0-10.0)
[2019-04-22 12:14] LABS: ALBUMIN 3.6 g/dl (3.4-5.0); BILIRUBIN,TOTAL 0.4 mg/dL (0.2-1); BLOOD UREA NITROGEN 22.5 mg/dL (7-18); CALCIUM 9.8 mg/dL (8.5-10.1); CREATININE 1.2 mg/dL (0.55-1.3); POTASSIUM 3.7 mmol/L (3.5-5.1); TOT PROT 6.8 g/dl (6.4-8.2)
[2019-04-22 15:57] VITALS: BP 130/80; PULSE 54; TEMP 97.5
== END 2019-04-22 13:30 | disposition home or self-care (01) ==
LOC: JONCCHEMO 05:55 → J7W 11:53 → JONCCHEMO 13:30
PROVIDERS: ATTEND Internal Medicine Hematology & Oncology
DX: Z51.11 Encounter for antineoplastic chemotherapy (principal); C50.511 Malignant neoplasm of lower-outer quadrant of right female breast; I10 Essential (primary) hypertension; E03.9 Hypothyroidism, unspecified; M19.90 Unspecified osteoarthritis, unspecified site
CPT/HCPCS: 36415; 80053; 85025; 96413; Q5117

== ENCOUNTER 2019-05-13 07:18 | Day surgery (SDC) | payer OTHER, BC ==
[2019-05-13 12:31] LABS: BASO % 1.8 % (0-2.0); EOS % 8.9 % (0-4.5); HEMATOCRIT 41.5 % (32.4-45.2); HEMOGLOBIN 14.2 GM/dL (10.7-15.3); LYMPH % 22.1 % (8-40); MCH 32.7 pg (25.7-33.7); MCHC 34.2 g/dl (32.0-36.0); MEAN CELL VOLUME 95.7 fl (80-96); MEAN PLT VOLUME 9.8 fl (7.5-11.1); MONO % 7.1 % (3.8-10.2); NEUT % 60.1 % (42.8-82.8); PLATELET COUNT 224 K/MM3 (134-434); RBC 4.34 M/mm3 (3.60-5.2); RDW 13.5 % (11.6-15.6); WHITE BLOOD COUNT 7.6 K/mm3 (4.0-10.0)
[2019-05-13 12:55] LABS: ALBUMIN 3.5 g/dl (3.4-5.0); BILIRUBIN,TOTAL 0.5 mg/dL (0.2-1); BLOOD UREA NITROGEN 23.3 mg/dL (7-18); CALCIUM 9.5 mg/dL (8.5-10.1); CREATININE 1.2 mg/dL (0.55-1.3); MAGNESIUM 1.7 mg/dL (1.8-2.4); POTASSIUM 3.9 mmol/L (3.5-5.1)
[2019-05-13] MEDS ORDERED: TRASTUZUMAB ANNS IVPB ONE (13:15)
[2019-05-13] MEDS ORDERED: SODIUM CHLORIDE IVPB ONE (13:15)
[2019-05-13] MEDS ORDERED: MAGNESIUM SULF 50% (8.12 MEQ/2 ML-1 GM VIAL) IVPB ONE (14:00)
[2019-05-13 16:52] VITALS: BP 143/96; PULSE 74; TEMP 97.7
== END 2019-05-13 14:25 | disposition home or self-care (01) ==
LOC: JONCCHEMO 07:18 → J7W 12:43 → JONCCHEMO 14:25
PROVIDERS: ATTEND Internal Medicine Hematology & Oncology
DX: Z51.11 Encounter for antineoplastic chemotherapy (principal); C50.511 Malignant neoplasm of lower-outer quadrant of right female breast
CPT/HCPCS: 36415; 80053; 83735; 85025; Q5117

== ENCOUNTER 2019-09-02 05:30 | Day surgery (SDC) | payer OTHER, BC ==
[2019-09-02] MEDS ORDERED: SODIUM CHLORIDE IVPB ONE (10:00)
[2019-09-02] MEDS ORDERED: TRASTUZUMAB ANNS IVPB ONE (10:00)
[2019-09-02 13:33] LABS: BASO % 1.9 % (0-2.0); EOS % 11.1 % (0-4.5); HEMATOCRIT 42.3 % (32.4-45.2); HEMOGLOBIN 14.2 GM/dL (10.7-15.3); LYMPH % 23.8 % (8-40); MCH 32.7 pg (25.7-33.7); MCHC 33.5 g/dl (32.0-36.0); MEAN CELL VOLUME 97.6 fl (80-96); MEAN PLT VOLUME 10.3 fl (7.5-11.1); MONO % 8.3 % (3.8-10.2); NEUT % 54.9 % (42.8-82.8); PLATELET COUNT 220 K/MM3 (134-434); RBC 4.34 M/mm3 (3.60-5.2); RDW 13.6 % (11.6-15.6); WHITE BLOOD COUNT 6.8 K/mm3 (4.0-10.0)
[2019-09-02 14:04] LABS: ALBUMIN 3.5 g/dl (3.4-5.0); BILIRUBIN,DIRECT 0.1 mg/dL (0.0-0.2); BILIRUBIN,TOTAL 0.4 mg/dL (0.2-1); BLOOD UREA NITROGEN 23.7 mg/dL (7-18); CALCIUM 9.3 mg/dL (8.5-10.1); MAGNESIUM 1.8 mg/dL (1.8-2.4); POTASSIUM 4.1 mmol/L (3.5-5.1); TOT PROT 6.6 g/dl (6.4-8.2)
[2019-09-02 14:33] LABS: CREATININE 1.2 mg/dL (0.55-1.3)
[2019-09-02 17:22] VITALS: BP 132/71; PULSE 50; TEMP 97.9
== END 2019-09-02 14:20 | disposition home or self-care (01) ==
LOC: JONCCHEMO 05:30
PROVIDERS: ATTEND Internal Medicine Hematology & Oncology
PROC: 3E0337Z Introduction of Electrolytic and Water Balance Substance into Peripheral Vein, Percutaneous Approach (ICD-10-PCS; principal; 2019-09-02)
DX: Z76.89 Persons encountering health services in other specified circumstances (principal); C50.511 Malignant neoplasm of lower-outer quadrant of right female breast; E11.9 Type 2 diabetes mellitus without complications; E78.00 Pure hypercholesterolemia, unspecified; I10 Essential (primary) hypertension; Z86.73 Personal history of transient ischemic attack (TIA), and cerebral infarction without residual deficits
CPT/HCPCS: 36415; 80048; 80076; 83735; 85025; 96360; 96361; Q5117

== ENCOUNTER 2019-10-02 07:34 | Day surgery (SDC) | payer OTHER, BC ==
[2019-10-02] MEDS ORDERED: SODIUM CHLORIDE IVPB ONE (10:00)
[2019-10-02] MEDS ORDERED: TRASTUZUMAB ANNS IVPB ONE (10:00)
[2019-10-02 12:52] LABS: BASO % 1.4 % (0-2.0); EOS % 9.6 % (0-4.5); HEMATOCRIT 41.8 % (32.4-45.2); HEMOGLOBIN 14.3 GM/dL (10.7-15.3); LYMPH % 19.4 % (8-40); MCH 32.8 pg (25.7-33.7); MCHC 34.1 g/dl (32.0-36.0); MEAN CELL VOLUME 96.1 fl (80-96); MEAN PLT VOLUME 10.2 fl (7.5-11.1); MONO % 7.3 % (3.8-10.2); NEUT % 62.3 % (42.8-82.8); PLATELET COUNT 220 K/MM3 (134-434); RBC 4.35 M/mm3 (3.60-5.2); RDW 12.6 % (11.6-15.6); WHITE BLOOD COUNT 7.9 K/mm3 (4.0-10.0)
[2019-10-02 13:36] LABS: ALBUMIN 3.7 g/dl (3.4-5.0); BILIRUBIN,TOTAL 0.4 mg/dL (0.2-1); BLOOD UREA NITROGEN 20.6 mg/dL (7-18); CALCIUM 9.7 mg/dL (8.5-10.1); CREATININE 1.4 mg/dL (0.55-1.3); POTASSIUM 3.7 mmol/L (3.5-5.1); TOT PROT 7.2 g/dl (6.4-8.2)
[2019-10-02 17:01] VITALS: BP 112/75; PULSE 54; TEMP 97.8
== END 2019-10-02 14:15 | disposition home or self-care (01) ==
LOC: JONCCHEMO 07:34
PROVIDERS: ATTEND Internal Medicine Hematology & Oncology
DX: Z51.11 Encounter for antineoplastic chemotherapy (principal); C50.511 Malignant neoplasm of lower-outer quadrant of right female breast; I10 Essential (primary) hypertension; E03.9 Hypothyroidism, unspecified
CPT/HCPCS: 36415; 80053; 85025; 96413; Q5117

== ENCOUNTER 2019-10-23 07:33 | Day surgery (SDC) | payer OTHER, BC ==
[2019-10-23] MEDS ORDERED: TRASTUZUMAB ANNS IVPB ONE (10:00)
[2019-10-23] MEDS ORDERED: SODIUM CHLORIDE IVPB ONE (10:00)
[2019-10-23 12:22] LABS: WHITE BLOOD COUNT 6.9 K/mm3 (4.0-10.0)
[2019-10-23 12:23] LABS: BASO % 1.7 % (0-2.0); EOS % 9.3 % (0-4.5); HEMATOCRIT 42.6 % (32.4-45.2); HEMOGLOBIN 14.4 GM/dL (10.7-15.3); LYMPH % 22.2 % (8-40); MCH 32.6 pg (25.7-33.7); MCHC 33.7 g/dl (32.0-36.0); MEAN CELL VOLUME 96.6 fl (80-96); MEAN PLT VOLUME 10.3 fl (7.5-11.1); MONO % 6.7 % (3.8-10.2); NEUT % 60.1 % (42.8-82.8); PLATELET COUNT 211 K/MM3 (134-434); RBC 4.41 M/mm3 (3.60-5.2); RDW 13.4 % (11.6-15.6)
[2019-10-23 12:51] LABS: ALBUMIN 3.7 g/dl (3.4-5.0); BILIRUBIN,TOTAL 0.4 mg/dL (0.2-1); BLOOD UREA NITROGEN 21.6 mg/dL (7-18); CALCIUM 9.7 mg/dL (8.5-10.1); CREATININE 1.5 mg/dL (0.55-1.3); TOT PROT 7.1 g/dl (6.4-8.2)
[2019-10-23 15:20] VITALS: BP 123/68; PULSE 50; TEMP 98.4
== END 2019-10-23 14:10 | disposition home or self-care (01) ==
LOC: JONCCHEMO 07:33
PROVIDERS: ATTEND Internal Medicine Hematology & Oncology
DX: Z51.11 Encounter for antineoplastic chemotherapy (principal); C50.511 Malignant neoplasm of lower-outer quadrant of right female breast
CPT/HCPCS: 36415; 80053; 83735; 85025; 96413

== ENCOUNTER 2019-11-13 07:22 | Day surgery (SDC) | payer OTHER, BC ==
[2019-11-13] MEDS ORDERED: SODIUM CHLORIDE 500 ML IV ONE (09:00)
[2019-11-13] MEDS ORDERED: PALONOSETRON HCL 0.25 MG/5 ML VIAL IVPUSH ONE (09:30)
[2019-11-13] MEDS ORDERED: FAMOTIDINE 20 MG/50 ML IVPB 20 MG/50 ML MG IVPB ONE (09:30)
[2019-11-13] MEDS ORDERED: FOSAPREPITANT DIMEGLUMINE 150 MG in SODIUM CHLORIDE 145 ML IVPB ONE (09:30)
[2019-11-13] MEDS ORDERED: DEXAMETHASONE SODIUM PHOSPHATE 20 MG, DIPHENHYDRAMINE 50 MG in SODIUM CHLORIDE 100 ML IVPB ONE (09:30)
[2019-11-13] MEDS ORDERED: SODIUM CHLORIDE IVPB ONE ×2 (10:00→13:00)
[2019-11-13] MEDS ORDERED: PACLITAXEL 300 MG in SODIUM CHLORIDE 500 ML IVPB ONE (10:00)
[2019-11-13] MEDS ORDERED: TRASTUZUMAB ANNS IVPB ONE (10:00)
[2019-11-13 12:15] LABS: BASO % 1.3 % (0-2.0); EOS % 7.2 % (0-4.5); HEMATOCRIT 43.2 % (32.4-45.2); HEMOGLOBIN 14.5 GM/dL (10.7-15.3); LYMPH % 14.8 % (8-40); MCH 32.7 pg (25.7-33.7); MCHC 33.7 g/dl (32.0-36.0); MEAN PLT VOLUME 10.2 fl (7.5-11.1); MONO % 4.9 % (3.8-10.2); NEUT % 71.8 % (42.8-82.8); PLATELET COUNT 216 K/MM3 (134-434); RBC 4.45 M/mm3 (3.60-5.2); RDW 13.4 % (11.6-15.6); WHITE BLOOD COUNT 8.9 K/mm3 (4.0-10.0)
[2019-11-13 12:49] LABS: ALBUMIN 3.6 g/dl (3.4-5.0); BILIRUBIN,TOTAL 0.4 mg/dL (0.2-1); BLOOD UREA NITROGEN 17.9 mg/dL (7-18); CALCIUM 9.5 mg/dL (8.5-10.1); CREATININE 1.4 mg/dL (0.55-1.3); POTASSIUM 3.6 mmol/L (3.5-5.1); TOT PROT 7.1 g/dl (6.4-8.2)
[2019-11-13] MEDS ORDERED: CARBOPLATIN IVPB ONE (13:00)
[2019-11-13 16:06] VITALS: BP 148/64; PULSE 43; TEMP 97.7
== END 2019-11-13 14:35 | disposition home or self-care (01) ==
LOC: JONCCHEMO 07:22
PROVIDERS: ATTEND Internal Medicine Hematology & Oncology
DX: Z51.11 Encounter for antineoplastic chemotherapy (principal); C50.511 Malignant neoplasm of lower-outer quadrant of right female breast
CPT/HCPCS: 36415; 80053; 85025; 96413; Q5117

== ENCOUNTER 2019-12-04 06:51 | Day surgery (SDC) | payer OTHER, BC ==
--- OUTSIDE RECORDS SUMMARY | 2019-12-04 07:05 | XMS ---
:[address] [facility] Support Name Relationship Address Phone RE, RETIRED Unavailable Unavailable Unavailable RE Unavailable Unavailable Unavailable MARLO PINEDA DAUGHTER [address] [facility] [place] [address] Re-disclosure Warning The records that you are about to access may contain information from federally- assisted alcohol or drug abuse programs. If such information is present, then the following federally mandated warning applies: This information has been disclosed to you from records protected by federal confidentiality rules (42 CFR part 2). The federal rules prohibit you from making any further disclosure of this information unless further disclosure is expressly permitted by the written consent of the person to whom it pertains or as otherwise permitted by 42 CFR part 2. A general authorization for the release of medical or other information is NOT sufficient for this purpose. The Federal rules restrict any use of the information to criminally investigate or prosecute any alcohol or drug abuse patient.The records that you are about to access may contain highly sensitive health information, the redisclosure of which is protected by Article 27-F of the [facility] Public Health law. If you continue you may haveaccess to information: Regarding HIV / AIDS; Provided by facilities licensed or operated by the [facility] Office of Mental Health; or Provided by the [facility] Office for People With Developmental Disabilities. If such information is present, then the following [facility] mandated warning applies: This information has been disclosed to you from confidential records which are protected by state law. State law prohibits you from making any further disclosure of this information without the specific written consent of the person to whom it pertains, or as otherwise permitted by law. Any unauthorized further disclosure in violation of state law may result in a fine or usp sentence or both. A general authorization for the release of medical or other information is NOT sufficient authorization for further disclosure. Insurance Providers Payer name Policy type Policy ID Covered Covered green party's Policy P mary lou / Coverage green party ID relationship to Loja Inf ormation type loja BLUE CROSS [id number] SP [id number] SUPP PLAN 4 MEDICARE [id number] SP [id number] MEDICARE [id number] SP [id number] A BLUE CROSS [id number] SP [id number] SUPP PLAN 4 BC MEDICARE [id number] SP [id number] SECONDARY 4 BLUE CROSS [id number] SP [id number] SUPP PLAN 4 MEDICARE [id number] SP [id number]
[2019-12-04] MEDS ORDERED: SODIUM CHLORIDE IVPB ONE (10:00)
[2019-12-04] MEDS ORDERED: TRASTUZUMAB ANNS IVPB ONE (10:00)
[2019-12-04 12:55] LABS: EOS % 8.6 % (0-4.5); HEMATOCRIT 40.5 % (32.4-45.2); HEMOGLOBIN 13.9 GM/dL (10.7-15.3); LYMPH % 21.1 % (8-40); MCH 32.9 pg (25.7-33.7); MCHC 34.2 g/dl (32.0-36.0); MEAN CELL VOLUME 96.2 fl (80-96); MEAN PLT VOLUME 9.2 fl (7.5-11.1); MONO % 6.3 % (3.8-10.2); PLATELET COUNT 200 K/MM3 (134-434); RBC 4.21 M/mm3 (3.60-5.2); RDW 13.4 % (11.6-15.6); WHITE BLOOD COUNT 7.8 K/mm3 (4.0-10.0)
[2019-12-04 13:13] LABS: ALBUMIN 3.4 g/dl (3.4-5.0); BILIRUBIN,TOTAL 0.4 mg/dL (0.2-1); BLOOD UREA NITROGEN 18.4 mg/dL (7-18); CALCIUM 9.3 mg/dL (8.5-10.1); CREATININE 1.1 mg/dL (0.55-1.3); MAGNESIUM 1.6 mg/dL (1.8-2.4); POTASSIUM 3.7 mmol/L (3.5-5.1)
[2019-12-04 17:26] VITALS: BP 156/62; PULSE 52; TEMP 98.3
== END 2019-12-04 15:00 | disposition home or self-care (01) ==
LOC: JONCCHEMO 06:51
PROVIDERS: ATTEND Internal Medicine Hematology & Oncology
DX: Z51.11 Encounter for antineoplastic chemotherapy (principal); C50.511 Malignant neoplasm of lower-outer quadrant of right female breast
CPT/HCPCS: 36415; 80053; 83735; 85025; 96413

== ENCOUNTER 2020-01-15 07:18 | Day surgery (SDC) | payer OTHER, BC ==
[2020-01-15 14:39] LABS: BASO % 0.9 % (0-2.0); EOS % 5.5 % (0-4.5); HEMATOCRIT 43.8 % (32.4-45.2); HEMOGLOBIN 14.9 GM/dL (10.7-15.3); LYMPH % 15.6 % (8-40); MCHC 33.9 g/dl (32.0-36.0); MEAN CELL VOLUME 97.2 fl (80-96); MEAN PLT VOLUME 10.2 fl (7.5-11.1); MONO % 6.1 % (3.8-10.2); NEUT % 71.9 % (42.8-82.8); PLATELET COUNT 230 K/MM3 (134-434); RBC 4.51 M/mm3 (3.60-5.2); RDW 13.6 % (11.6-15.6)
[2020-01-15 14:57] LABS: POTASSIUM 4.3 mmol/L (3.5-5.1)
[2020-01-15 14:59] LABS: ALBUMIN 3.6 g/dl (3.4-5.0); CALCIUM 9.7 mg/dL (8.5-10.1)
[2020-01-15 15:02] LABS: CREATININE 1.3 mg/dL (0.55-1.3); IRON SERUM 114 ug/dL (50-175); TOTAL IRON BINDING CAPACITY 325 ug/dL (250-450)
[2020-01-15 15:04] LABS: BILIRUBIN,TOTAL 0.4 mg/dL (0.2-1); TOT PROT 7.3 g/dl (6.4-8.2)
[2020-01-15] MEDS ORDERED: SODIUM CHLORIDE IVPB ONE (15:30)
[2020-01-15] MEDS ORDERED: TRASTUZUMAB ANNS IVPB ONE (15:30)
[2020-01-15 16:19] VITALS: TEMP 97.9
[2020-01-18 06:49] VITALS: BP 116/71; PULSE 65
== END 2020-01-15 16:23 | disposition home or self-care (01) ==
LOC: JONCCHEMO 07:18
PROVIDERS: ATTEND Internal Medicine Hematology & Oncology
DX: Z51.11 Encounter for antineoplastic chemotherapy (principal); C50.511 Malignant neoplasm of lower-outer quadrant of right female breast
CPT/HCPCS: 36415; 80053; 82306; 82607; 82728; 83540; 83550; 85025; 96402; 96413

== ENCOUNTER 2020-02-12 06:24 | Day surgery (SDC) | payer OTHER, BC ==
[2020-02-12] MEDS ORDERED: SODIUM CHLORIDE IVPB ONE ×2 (10:00→12:00)
[2020-02-12] MEDS ORDERED: TRASTUZUMAB ANNS IVPB ONE ×2 (10:00→12:00)
[2020-02-12 13:45] LABS: BASO % 1.3 % (0-2.0); EOS % 7.8 % (0-4.5); HEMATOCRIT 43.6 % (32.4-45.2); HEMOGLOBIN 14.2 GM/dL (10.7-15.3); LYMPH % 17.9 % (8-40); MCH 31.3 pg (25.7-33.7); MCHC 32.5 g/dl (32.0-36.0); MEAN CELL VOLUME 96.3 fl (80-96); MONO % 6.1 % (3.8-10.2); NEUT % 66.9 % (42.8-82.8); PLATELET COUNT 227 K/MM3 (134-434); RBC 4.53 M/mm3 (3.60-5.2); RDW 13.3 % (11.6-15.6); WHITE BLOOD COUNT 8.2 K/mm3 (4.0-10.0)
[2020-02-12 14:06] LABS: CALCIUM 8.1 mg/dL (8.5-10.1)
[2020-02-12 14:07] LABS: ALBUMIN 2.9 g/dl (3.4-5.0); BLOOD UREA NITROGEN 20.2 mg/dL (7-18)
[2020-02-12 14:10] LABS: CREATININE 1.1 mg/dL (0.55-1.3)
[2020-02-12 14:11] LABS: BILIRUBIN,TOTAL 0.7 mg/dL (0.2-1); TOT PROT 5.9 g/dl (6.4-8.2)
[2020-02-12] MEDS ORDERED: POTASSIUM CHLORIDE TABS 20 MEQ TABLET.ER (FP) PO ONE ×2 (14:30→18:30)
[2020-02-12 15:55] VITALS: BP 114/61; PULSE 54; TEMP 98.1
== END 2020-02-12 15:35 | disposition home or self-care (01) ==
LOC: JONCCHEMO 06:24
PROVIDERS: ATTEND Student in an Organized Health Care Education/Training Program
PROC: 3E033GC Introduction of Other Therapeutic Substance into Peripheral Vein, Percutaneous Approach (ICD-10-PCS; principal; 2020-02-12)
DX: Z51.11 Encounter for antineoplastic chemotherapy (principal); C50.511 Malignant neoplasm of lower-outer quadrant of right female breast
CPT/HCPCS: 36415; 80053; 85025; 96365; Q5117

== ENCOUNTER 2020-03-02 07:15 | Day surgery (SDC) | payer OTHER, BC ==
[2020-03-02] MEDS ORDERED: SODIUM CHLORIDE IVPB ONE (10:00)
[2020-03-02] MEDS ORDERED: TRASTUZUMAB ANNS IVPB ONE (10:00)
[2020-03-02 13:39] LABS: BASO % 1.3 % (0-2.0); EOS % 6.8 % (0-4.5); HEMATOCRIT 42.9 % (32.4-45.2); HEMOGLOBIN 14.7 GM/dL (10.7-15.3); LYMPH % 17.8 % (8-40); MCH 33.1 pg (25.7-33.7); MCHC 34.3 g/dl (32.0-36.0); MEAN CELL VOLUME 96.5 fl (80-96); MEAN PLT VOLUME 9.7 fl (7.5-11.1); MONO % 7.3 % (3.8-10.2); NEUT % 66.8 % (42.8-82.8); PLATELET COUNT 242 K/MM3 (134-434); RBC 4.44 M/mm3 (3.60-5.2); RDW 13.3 % (11.6-15.6); WHITE BLOOD COUNT 8.5 K/mm3 (4.0-10.0)
[2020-03-02 14:15] LABS: CALCIUM 9.6 mg/dL (8.5-10.1)
[2020-03-02 14:16] LABS: ALBUMIN 3.6 g/dl (3.4-5.0)
[2020-03-02 14:20] LABS: BILIRUBIN,TOTAL 0.4 mg/dL (0.2-1); TOT PROT 6.9 g/dl (6.4-8.2)
[2020-03-02 14:31] LABS: BLOOD UREA NITROGEN 23.9 mg/dL (7-18); CREATININE 1.2 mg/dL (0.55-1.3)
[2020-03-02 16:56] VITALS: BP 157/80; PULSE 45; TEMP 97.4
== END 2020-03-02 15:35 | disposition home or self-care (01) ==
LOC: JONCCHEMO 07:15
PROVIDERS: ATTEND Internal Medicine Hematology & Oncology
DX: Z51.11 Encounter for antineoplastic chemotherapy (principal); C50.919 Malignant neoplasm of unspecified site of unspecified female breast
CPT/HCPCS: 36415; 80053; 85025; 96372; 96413; Q5117

== ENCOUNTER 2020-03-25 06:23 | Day surgery (SDC) | payer OTHER, BC ==
[2020-03-25] MEDS ORDERED: SODIUM CHLORIDE IVPB ONE (10:00)
[2020-03-25] MEDS ORDERED: TRASTUZUMAB ANNS IVPB ONE (10:00)
[2020-03-25 12:23] LABS: BASO % 1.4 % (0-2.0); EOS % 8.2 % (0-4.5); HEMATOCRIT 44.2 % (32.4-45.2); LYMPH % 21.2 % (8-40); MCH 32.8 pg (25.7-33.7); MEAN CELL VOLUME 96.6 fl (80-96); NEUT % 61.2 % (42.8-82.8); PLATELET COUNT 246 K/MM3 (134-434); RBC 4.57 M/mm3 (3.60-5.2); RDW 13.4 % (11.6-15.6); WHITE BLOOD COUNT 8.7 K/mm3 (4.0-10.0)
[2020-03-25 12:40] LABS: POTASSIUM 3.9 mmol/L (3.5-5.1)
[2020-03-25 12:41] LABS: CALCIUM 10.1 mg/dL (8.5-10.1)
[2020-03-25 12:42] LABS: ALBUMIN 3.6 g/dl (3.4-5.0)
[2020-03-25 12:45] LABS: CREATININE 1.2 mg/dL (0.55-1.3)
[2020-03-25 12:47] LABS: BILIRUBIN,TOTAL 0.5 mg/dL (0.2-1)
[2020-03-25 17:36] VITALS: BP 138/79; PULSE 52; TEMP 97.4
== END 2020-03-25 14:15 | disposition home or self-care (01) ==
LOC: JONCCHEMO 06:23
PROVIDERS: ATTEND Internal Medicine Hematology & Oncology
DX: Z51.11 Encounter for antineoplastic chemotherapy (principal); C50.919 Malignant neoplasm of unspecified site of unspecified female breast
CPT/HCPCS: 36415; 80053; 82306; 85025; 96413

== ENCOUNTER 2020-04-15 06:41 | Day surgery (SDC) | payer OTHER, BC ==
[2020-04-15] MEDS ORDERED: TRASTUZUMAB ANNS IVPB ONE (10:00)
[2020-04-15] MEDS ORDERED: SODIUM CHLORIDE IVPB ONE (10:00)
[2020-04-15 11:25] LABS: BASO % 2.2 % (0-2.0); EOS % 7.1 % (0-4.5); HEMATOCRIT 44.6 % (32.4-45.2); HEMOGLOBIN 15.3 GM/dL (10.7-15.3); LYMPH % 21.7 % (8-40); MCH 33.2 pg (25.7-33.7); MCHC 34.3 g/dl (32.0-36.0); MEAN PLT VOLUME 9.8 fl (7.5-11.1); PLATELET COUNT 229 K/MM3 (134-434); RDW 13.2 % (11.6-15.6); WHITE BLOOD COUNT 8.9 K/mm3 (4.0-10.0)
[2020-04-15 11:52] LABS: ALBUMIN 3.6 g/dl (3.4-5.0); BLOOD UREA NITROGEN 21.5 mg/dL (7-18); CALCIUM 9.8 mg/dL (8.5-10.1)
[2020-04-15 11:55] LABS: CREATININE 1.3 mg/dL (0.55-1.3)
[2020-04-15 11:57] LABS: BILIRUBIN,TOTAL 0.4 mg/dL (0.2-1); TOT PROT 7.2 g/dl (6.4-8.2)
[2020-04-15 17:14] VITALS: BP 137/65; PULSE 47; TEMP 97.5
== END 2020-04-15 13:20 | disposition home or self-care (01) ==
LOC: JONCCHEMO 06:41
PROVIDERS: ATTEND Internal Medicine Hematology & Oncology
DX: Z51.11 Encounter for antineoplastic chemotherapy (principal); C50.911 Malignant neoplasm of unspecified site of right female breast
CPT/HCPCS: 36415; 80053; 82306; 85025; 96413

== ENCOUNTER 2020-05-06 07:29 | Day surgery (SDC) | payer OTHER, BC ==
[2020-05-06] MEDS ORDERED: SODIUM CHLORIDE IVPB ONE (10:30)
[2020-05-06] MEDS ORDERED: TRASTUZUMAB ANNS IVPB ONE (10:30)
[2020-05-06 13:43] LABS: BASO % 1.2 % (0-2.0); EOS % 8.3 % (0-4.5); HEMATOCRIT 44.9 % (32.4-45.2); HEMOGLOBIN 15.1 GM/dL (10.7-15.3); LYMPH % 18.9 % (8-40); MCH 32.6 pg (25.7-33.7); MCHC 33.7 g/dl (32.0-36.0); MEAN PLT VOLUME 10.4 fl (7.5-11.1); MONO % 7.1 % (3.8-10.2); NEUT % 64.5 % (42.8-82.8); PLATELET COUNT 230 K/MM3 (134-434); RBC 4.63 M/mm3 (3.60-5.2); RDW 13.3 % (11.6-15.6); WHITE BLOOD COUNT 9.6 K/mm3 (4.0-10.0)
[2020-05-06 14:08] LABS: BLOOD UREA NITROGEN 16.7 mg/dL (7-18); CALCIUM 9.5 mg/dL (8.5-10.1)
[2020-05-06 14:09] LABS: ALBUMIN 3.6 g/dl (3.4-5.0)
[2020-05-06 14:11] LABS: CREATININE 1.2 mg/dL (0.55-1.3)
[2020-05-06 14:13] LABS: BILIRUBIN,TOTAL 0.4 mg/dL (0.2-1)
[2020-05-06 14:14] LABS: TOT PROT 7.2 g/dl (6.4-8.2)
[2020-05-06 16:29] VITALS: BP 116/78; PULSE 56; TEMP 97
== END 2020-05-06 15:40 | disposition home or self-care (01) ==
LOC: JONCCHEMO 07:29
PROVIDERS: ATTEND Internal Medicine Hematology & Oncology
DX: Z51.11 Encounter for antineoplastic chemotherapy (principal); C50.911 Malignant neoplasm of unspecified site of right female breast
CPT/HCPCS: 36415; 80053; 85025; 96413; Q5117

== ENCOUNTER 2020-05-27 06:49 | Day surgery (SDC) | payer OTHER, BC ==
[2020-05-27] MEDS ORDERED: TRASTUZUMAB ANNS IVPB ONE (10:00)
[2020-05-27] MEDS ORDERED: SODIUM CHLORIDE IVPB ONE (10:00)
[2020-05-27 12:35] LABS: BASO % 2.2 % (0-2.0); EOS % 11.2 % (0-4.5); HEMATOCRIT 42.7 % (32.4-45.2); HEMOGLOBIN 14.4 GM/dL (10.7-15.3); LYMPH % 20.8 % (8-40); MCH 32.3 pg (25.7-33.7); MCHC 33.7 g/dl (32.0-36.0); MEAN CELL VOLUME 95.8 fl (80-96); MEAN PLT VOLUME 9.8 fl (7.5-11.1); MONO % 6.5 % (3.8-10.2); NEUT % 59.3 % (42.8-82.8); PLATELET COUNT 244 K/MM3 (134-434); RBC 4.45 M/mm3 (3.60-5.2); RDW 13.3 % (11.6-15.6); WHITE BLOOD COUNT 8.8 K/mm3 (4.0-10.0)
[2020-05-27 12:56] LABS: POTASSIUM 3.7 mmol/L (3.5-5.1)
[2020-05-27 12:58] LABS: CALCIUM 9.9 mg/dL (8.5-10.1)
[2020-05-27 12:59] LABS: ALBUMIN 3.6 g/dl (3.4-5.0); BLOOD UREA NITROGEN 20.7 mg/dL (7-18)
[2020-05-27 13:02] LABS: CREATININE 1.2 mg/dL (0.55-1.3)
[2020-05-27 13:04] LABS: BILIRUBIN,TOTAL 0.4 mg/dL (0.2-1); TOT PROT 7.1 g/dl (6.4-8.2)
[2020-05-27 14:27] VITALS: TEMP 98
[2020-05-27 14:41] VITALS: BP 146/66; PULSE 64
== END 2020-05-27 14:44 | disposition home or self-care (01) ==
LOC: JONCCHEMO 06:49
PROVIDERS: ATTEND Internal Medicine Hematology & Oncology
DX: Z51.11 Encounter for antineoplastic chemotherapy (principal); C50.911 Malignant neoplasm of unspecified site of right female breast
CPT/HCPCS: 36415; 80053; 85025; 96413

== ENCOUNTER 2020-06-17 06:32 | Day surgery (SDC) | payer OTHER, BC ==
[2020-06-17] MEDS ORDERED: TRASTUZUMAB ANNS IVPB ONE (10:30)
[2020-06-17] MEDS ORDERED: SODIUM CHLORIDE IVPB ONE (10:30)
[2020-06-17 12:50] LABS: BASO % 2.3 % (0-2.0); EOS % 11.7 % (0-4.5); HEMATOCRIT 44.7 % (32.4-45.2); HEMOGLOBIN 15.1 GM/dL (10.7-15.3); LYMPH % 23.7 % (8-40); MCH 32.8 pg (25.7-33.7); MCHC 33.8 g/dl (32.0-36.0); NEUT % 54.3 % (42.8-82.8); PLATELET COUNT 238 K/MM3 (134-434); RDW 13.2 % (11.6-15.6); WHITE BLOOD COUNT 7.8 K/mm3 (4.0-10.0)
[2020-06-17 13:15] LABS: BLOOD UREA NITROGEN 17.4 mg/dL (7-18)
[2020-06-17 13:16] LABS: ALBUMIN 3.6 g/dl (3.4-5.0)
[2020-06-17 13:18] LABS: CREATININE 1.2 mg/dL (0.55-1.3)
[2020-06-17 13:20] LABS: BILIRUBIN,TOTAL 0.5 mg/dL (0.2-1); TOT PROT 7.4 g/dl (6.4-8.2)
[2020-06-17 15:36] VITALS: BP 121/61; PULSE 49; TEMP 98
== END 2020-06-17 14:30 | disposition home or self-care (01) ==
LOC: JONCCHEMO 06:32
PROVIDERS: ATTEND Internal Medicine Hematology & Oncology
DX: Z51.11 Encounter for antineoplastic chemotherapy (principal); C50.911 Malignant neoplasm of unspecified site of right female breast
CPT/HCPCS: 36415; 80053; 85025; 96413; Q5117

== ENCOUNTER 2020-07-15 07:29 | Day surgery (SDC) | payer OTHER, BC ==
[2020-07-15 12:58] LABS: BASO % 2.4 % (0-2.0); EOS % 11.9 % (0-4.5); HEMATOCRIT 44.2 % (32.4-45.2); LYMPH % 23.5 % (8-40); MCH 32.7 pg (25.7-33.7); MCHC 33.8 g/dl (32.0-36.0); MEAN CELL VOLUME 96.7 fl (80-96); MEAN PLT VOLUME 10.2 fl (7.5-11.1); NEUT % 55.2 % (42.8-82.8); PLATELET COUNT 249 K/MM3 (134-434); RBC 4.57 M/mm3 (3.60-5.2); RDW 13.6 % (11.6-15.6); WHITE BLOOD COUNT 8.1 K/mm3 (4.0-10.0)
[2020-07-15 13:33] LABS: CALCIUM 9.6 mg/dL (8.5-10.1)
[2020-07-15 13:34] LABS: ALBUMIN 3.8 g/dl (3.4-5.0)
[2020-07-15 13:37] LABS: CREATININE 1.2 mg/dL (0.55-1.3)
[2020-07-15 13:39] LABS: BILIRUBIN,TOTAL 0.4 mg/dL (0.2-1)
[2020-07-15] MEDS ORDERED: LIDOCAINE HCL 1%, 10 MG/ML (20ML VIAL) ID ONE (14:00)
[2020-07-15] MEDS ORDERED: GOSERELIN ACETATE 3.6 MG IMPLANT SYRINGE SQ ONE (14:00)
[2020-07-15] MEDS ORDERED: SODIUM CHLORIDE IVPB ONE (14:00)
[2020-07-15] MEDS ORDERED: TRASTUZUMAB ANNS IVPB ONE (14:00)
[2020-07-15 17:18] VITALS: BP 136/74; PULSE 82; TEMP 98.1
== END 2020-07-15 15:15 | disposition home or self-care (01) ==
LOC: JONCBLOOD 07:29
PROVIDERS: ATTEND Internal Medicine Hematology & Oncology
DX: Z51.11 Encounter for antineoplastic chemotherapy (principal); C50.911 Malignant neoplasm of unspecified site of right female breast
CPT/HCPCS: 36415; 80053; 85025; 96413; Q5117

== ENCOUNTER 2020-08-05 07:21 | Day surgery (SDC) | payer OTHER, BC ==
[2020-08-05] MEDS ORDERED: SODIUM CHLORIDE IVPB ONE (10:00)
[2020-08-05] MEDS ORDERED: TRASTUZUMAB ANNS IVPB ONE (10:00)
[2020-08-05 12:33] LABS: BASO % 2.1 % (0-2.0); EOS % 9.7 % (0-4.5); HEMATOCRIT 41.9 % (32.4-45.2); HEMOGLOBIN 14.2 GM/dL (10.7-15.3); LYMPH % 19.3 % (8-40); MCH 32.7 pg (25.7-33.7); MCHC 33.9 g/dl (32.0-36.0); MEAN CELL VOLUME 96.4 fl (80-96); MEAN PLT VOLUME 10.3 fl (7.5-11.1); MONO % 6.7 % (3.8-10.2); NEUT % 62.2 % (42.8-82.8); PLATELET COUNT 216 K/MM3 (134-434); RBC 4.35 M/mm3 (3.60-5.2); RDW 13.4 % (11.6-15.6); WHITE BLOOD COUNT 8.6 K/mm3 (4.0-10.0)
[2020-08-05 13:00] LABS: ALBUMIN 3.5 g/dl (3.4-5.0); BLOOD UREA NITROGEN 20.8 mg/dL (7-18); CALCIUM 9.8 mg/dL (8.5-10.1)
[2020-08-05 13:03] LABS: CREATININE 1.1 mg/dL (0.55-1.3)
[2020-08-05 13:06] LABS: BILIRUBIN,TOTAL 0.5 mg/dL (0.2-1); TOT PROT 6.7 g/dl (6.4-8.2)
[2020-08-05 17:01] VITALS: BP 146/76; PULSE 56
[2020-08-05 17:07] VITALS: TEMP 97.9
== END 2020-08-05 14:30 | disposition home or self-care (01) ==
LOC: JONCCHEMO 07:21 → EDSTATUS 14:18 → JONCCHEMO 14:30
PROVIDERS: ATTEND Internal Medicine Hematology & Oncology
DX: Z51.11 Encounter for antineoplastic chemotherapy (principal); C50.911 Malignant neoplasm of unspecified site of right female breast
CPT/HCPCS: 36415; 80053; 85025; 96413

== ENCOUNTER 2020-09-02 07:36 | Day surgery (SDC) | payer OTHER, BC ==
[2020-09-02] MEDS ORDERED: TRASTUZUMAB ANNS IVPB ONE (13:00)
[2020-09-02] MEDS ORDERED: SODIUM CHLORIDE IVPB ONE (13:00)
[2020-09-02 13:10] LABS: BASO % 2.4 % (0-2.0); HEMATOCRIT 47.3 % (32.4-45.2); HEMOGLOBIN 15.9 GM/dL (10.7-15.3); LYMPH % 16.9 % (8-40); MCH 32.5 pg (25.7-33.7); MCHC 33.5 g/dl (32.0-36.0); MEAN CELL VOLUME 96.8 fl (80-96); MEAN PLT VOLUME 10.7 fl (7.5-11.1); MONO % 7.5 % (3.8-10.2); NEUT % 65.2 % (42.8-82.8); PLATELET COUNT 201 10^3/uL (134-434); RBC 4.89 M/mm3 (3.60-5.2); RDW 13.3 % (11.6-15.6)
[2020-09-02 13:31] LABS: CALCIUM 9.8 mg/dL (8.5-10.1)
[2020-09-02 13:32] LABS: ALBUMIN 3.9 g/dl (3.4-5.0); BLOOD UREA NITROGEN 19.7 mg/dL (7-18)
[2020-09-02 13:35] LABS: CREATININE 1.2 mg/dL (0.55-1.3)
[2020-09-02 13:37] LABS: BILIRUBIN,TOTAL 0.6 mg/dL (0.2-1); TOT PROT 7.3 g/dl (6.4-8.2)
[2020-09-02 16:07] VITALS: BP 144/88; PULSE 50; TEMP 98
== END 2020-09-02 15:15 | disposition home or self-care (01) ==
LOC: JONCCHEMO 07:36
PROVIDERS: ATTEND Internal Medicine Hematology & Oncology
DX: Z51.11 Encounter for antineoplastic chemotherapy (principal); C50.911 Malignant neoplasm of unspecified site of right female breast
CPT/HCPCS: 36415; 80053; 85025; 96413; Q5117

== ENCOUNTER 2020-09-23 07:32 | Day surgery (SDC) | payer OTHER, BC ==
[2020-09-23] MEDS ORDERED: TRASTUZUMAB ANNS IVPB ONE (11:00)
[2020-09-23] MEDS ORDERED: SODIUM CHLORIDE IVPB ONE (11:00)
[2020-09-23 13:44] LABS: BASO % 1.1 % (0-2.0); EOS % 8.4 % (0-4.5); HEMATOCRIT 44.5 % (32.4-45.2); HEMOGLOBIN 15.1 GM/dL (10.7-15.3); LYMPH % 21.9 % (8-40); MCH 32.4 pg (25.7-33.7); MCHC 33.9 g/dl (32.0-36.0); MEAN CELL VOLUME 95.6 fl (80-96); MEAN PLT VOLUME 9.7 fl (7.5-11.1); MONO % 6.8 % (3.8-10.2); NEUT % 61.8 % (42.8-82.8); PLATELET COUNT 210 10^3/uL (134-434); RBC 4.66 M/mm3 (3.60-5.2); RDW 13.5 % (11.6-15.6)
[2020-09-23 14:27] LABS: CALCIUM 9.4 mg/dL (8.5-10.1)
[2020-09-23 14:28] LABS: ALBUMIN 3.6 g/dl (3.4-5.0)
[2020-09-23 14:31] LABS: CREATININE 1.4 mg/dL (0.55-1.3)
[2020-09-23 14:32] LABS: BILIRUBIN,TOTAL 0.5 mg/dL (0.2-1); TOT PROT 7.1 g/dl (6.4-8.2)
[2020-09-23 16:23] VITALS: BP 124/79; PULSE 49
[2020-09-23 16:27] VITALS: TEMP 98.7
== END 2020-09-23 15:45 | disposition home or self-care (01) ==
LOC: JONCCHEMO 07:32
PROVIDERS: ATTEND Internal Medicine Hematology & Oncology
DX: Z51.11 Encounter for antineoplastic chemotherapy (principal); C50.911 Malignant neoplasm of unspecified site of right female breast
CPT/HCPCS: 36415; 80053; 85025; 86300; 96413; Q5117

== ENCOUNTER 2020-10-14 06:40 | Day surgery (SDC) | payer OTHER, BC ==
[2020-10-14] MEDS ORDERED: SODIUM CHLORIDE IVPB ONE (10:00)
[2020-10-14] MEDS ORDERED: TRASTUZUMAB ANNS IVPB ONE (10:00)
[2020-10-14 12:52] LABS: BASO % 1.3 % (0-2.0); EOS % 7.6 % (0-4.5); HEMATOCRIT 44.2 % (32.4-45.2); HEMOGLOBIN 15.2 GM/dL (10.7-15.3); LYMPH % 17.8 % (8-40); MCH 32.8 pg (25.7-33.7); MCHC 34.3 g/dl (32.0-36.0); MEAN CELL VOLUME 95.6 fl (80-96); MEAN PLT VOLUME 10.4 fl (7.5-11.1); MONO % 6.4 % (3.8-10.2); NEUT % 66.9 % (42.8-82.8); PLATELET COUNT 216 10^3/uL (134-434); RBC 4.63 M/mm3 (3.60-5.2); RDW 13.5 % (11.6-15.6); WHITE BLOOD COUNT 9.1 K/mm3 (4.0-10.0)
[2020-10-14 13:05] LABS: CALCIUM 9.1 mg/dL (8.5-10.1)
[2020-10-14 13:06] LABS: ALBUMIN 3.5 g/dl (3.4-5.0); BLOOD UREA NITROGEN 19.4 mg/dL (7-18)
[2020-10-14 13:09] LABS: CREATININE 1.3 mg/dL (0.55-1.3)
[2020-10-14 13:10] LABS: BILIRUBIN,TOTAL 0.4 mg/dL (0.2-1)
[2020-10-14 17:21] VITALS: BP 131/79; PULSE 50; TEMP 97.9
== END 2020-10-14 15:15 | disposition home or self-care (01) ==
LOC: JONCCHEMO 06:40
PROVIDERS: ATTEND Internal Medicine Hematology & Oncology
DX: Z51.11 Encounter for antineoplastic chemotherapy (principal); C50.911 Malignant neoplasm of unspecified site of right female breast
CPT/HCPCS: 36415; 80053; 85025; 96413; Q5117

== ENCOUNTER 2020-11-04 07:17 | Day surgery (SDC) | payer OTHER, BC ==
[2020-11-04] MEDS ORDERED: TRASTUZUMAB ANNS IVPB ONE ×2 (10:00→13:45)
[2020-11-04] MEDS ORDERED: SODIUM CHLORIDE IVPB ONE ×2 (10:00→13:45)
[2020-11-04 12:40] LABS: BASO % 1.2 % (0-2.0); EOS % 10.8 % (0-4.5); HEMATOCRIT 41.3 % (32.4-45.2); HEMOGLOBIN 14.3 GM/dL (10.7-15.3); LYMPH % 19.3 % (8-40); MCH 33.1 pg (25.7-33.7); MCHC 34.7 g/dl (32.0-36.0); MEAN CELL VOLUME 95.5 fl (80-96); MEAN PLT VOLUME 9.6 fl (7.5-11.1); MONO % 6.3 % (3.8-10.2); NEUT % 62.4 % (42.8-82.8); PLATELET COUNT 223 10^3/uL (134-434); RBC 4.33 M/mm3 (3.60-5.2); RDW 13.2 % (11.6-15.6); WHITE BLOOD COUNT 8.1 K/mm3 (4.0-10.0)
[2020-11-04 13:11] LABS: ALBUMIN 3.4 g/dl (3.4-5.0); CALCIUM 9.3 mg/dL (8.5-10.1)
[2020-11-04 13:12] LABS: BLOOD UREA NITROGEN 22.6 mg/dL (7-18)
[2020-11-04 13:15] LABS: CREATININE 1.2 mg/dL (0.55-1.3)
[2020-11-04 13:16] LABS: BILIRUBIN,TOTAL 0.5 mg/dL (0.2-1); TOT PROT 6.8 g/dl (6.4-8.2)
[2020-11-04 17:26] VITALS: BP 125/76; PULSE 55; TEMP 97.6
== END 2020-11-04 15:15 | disposition home or self-care (01) ==
LOC: JONCCHEMO 07:17
PROVIDERS: ATTEND Internal Medicine Hematology & Oncology
DX: Z51.11 Encounter for antineoplastic chemotherapy (principal); C50.511 Malignant neoplasm of lower-outer quadrant of right female breast
CPT/HCPCS: 36415; 80053; 85025; 96413; Q5117

== ENCOUNTER 2020-11-25 07:13 | Day surgery (SDC) | payer OTHER, BC ==
[~2020-11-25 07:13] MED LIST changes: +TRASTUZUMAB ANNS IVPB ONE; -TRASTUZUMAB IVPB ONE
[2020-11-25] MEDS ORDERED: TRASTUZUMAB ANNS IVPB ONE (10:00)
[2020-11-25] MEDS ORDERED: SODIUM CHLORIDE IVPB ONE (10:00)
[2020-11-25 12:11] LABS: EOS % 9.3 % (0-4.5); HEMATOCRIT 43.4 % (32.4-45.2); HEMOGLOBIN 14.9 GM/dL (10.7-15.3); MCH 32.6 pg (25.7-33.7); MCHC 34.2 g/dl (32.0-36.0); MEAN CELL VOLUME 95.3 fl (80-96); MEAN PLT VOLUME 9.9 fl (7.5-11.1); MONO % 7.3 % (3.8-10.2); NEUT % 64.4 % (42.8-82.8); PLATELET COUNT 251 10^3/uL (134-434); RBC 4.55 M/mm3 (3.60-5.2); RDW 13.3 % (11.6-15.6); WHITE BLOOD COUNT 10.2 K/mm3 (4.0-10.0)
[2020-11-25 12:38] LABS: CALCIUM 9.9 mg/dL (8.5-10.1)
[2020-11-25 12:39] LABS: ALBUMIN 3.6 g/dl (3.4-5.0); BLOOD UREA NITROGEN 28.2 mg/dL (7-18)
[2020-11-25 12:42] LABS: CREATININE 1.3 mg/dL (0.55-1.3)
[2020-11-25 12:43] LABS: BILIRUBIN,TOTAL 0.6 mg/dL (0.2-1); TOT PROT 7.2 g/dl (6.4-8.2)
[2020-11-25 15:34] VITALS: BP 90/63; PULSE 64; TEMP 97.7
== END 2020-11-25 14:40 | disposition home or self-care (01) ==
LOC: JONCCHEMO 07:13
PROVIDERS: ATTEND Internal Medicine Hematology & Oncology
DX: Z51.11 Encounter for antineoplastic chemotherapy (principal); C50.511 Malignant neoplasm of lower-outer quadrant of right female breast
CPT/HCPCS: 36415; 80053; 85025; 86300; 96413; Q5117

== ENCOUNTER 2020-12-16 08:21 | Day surgery (SDC) | payer OTHER, BC ==
[2020-12-16] MEDS ORDERED: SODIUM CHLORIDE IVPB ONE (10:00)
[2020-12-16] MEDS ORDERED: TRASTUZUMAB ANNS IVPB ONE (10:00)
[2020-12-16 13:56] LABS: BASO % 1.1 % (0-2.0); EOS % 8.1 % (0-4.5); HEMATOCRIT 40.4 % (32.4-45.2); HEMOGLOBIN 13.8 GM/dL (10.7-15.3); LYMPH % 13.3 % (8-40); MCH 32.8 pg (25.7-33.7); MCHC 34.2 g/dl (32.0-36.0); MEAN CELL VOLUME 95.7 fl (80-96); MEAN PLT VOLUME 9.7 fl (7.5-11.1); MONO % 6.8 % (3.8-10.2); NEUT % 70.7 % (42.8-82.8); PLATELET COUNT 191 10^3/uL (134-434); RBC 4.22 M/mm3 (3.60-5.2); RDW 13.2 % (11.6-15.6); WHITE BLOOD COUNT 10.6 K/mm3 (4.0-10.0)
[2020-12-16 14:22] LABS: CALCIUM 8.8 mg/dL (8.5-10.1)
[2020-12-16 14:23] LABS: ALBUMIN 3.1 g/dl (3.4-5.0); BLOOD UREA NITROGEN 23.7 mg/dL (7-18)
[2020-12-16 14:25] LABS: CREATININE 1.2 mg/dL (0.55-1.3)
[2020-12-16 14:27] LABS: BILIRUBIN,TOTAL 0.5 mg/dL (0.2-1)
[2020-12-16 14:28] LABS: TOT PROT 6.5 g/dl (6.4-8.2)
[2020-12-16 16:32] VITALS: BP 137/82; PULSE 52; TEMP 98.5
== END 2020-12-16 15:30 | disposition home or self-care (01) ==
LOC: JONCCHEMO 08:21
PROVIDERS: ATTEND Internal Medicine Hematology & Oncology
DX: Z12.11 Encounter for screening for malignant neoplasm of colon (principal); C50.511 Malignant neoplasm of lower-outer quadrant of right female breast
CPT/HCPCS: 36415; 80053; 85025; 96413; Q5117

== ENCOUNTER 2021-01-13 07:52 | Day surgery (SDC) | payer OTHER, BC ==
[2021-01-13 11:52] LABS: BASO % 1.2 % (0-2.0); EOS % 10.5 % (0-4.5); HEMATOCRIT 42.7 % (32.4-45.2); HEMOGLOBIN 14.6 GM/dL (10.7-15.3); LYMPH % 17.8 % (8-40); MCH 33.3 pg (25.7-33.7); MCHC 34.2 g/dl (32.0-36.0); MEAN CELL VOLUME 97.3 fl (80-96); MEAN PLT VOLUME 9.4 fl (7.5-11.1); MONO % 5.6 % (3.8-10.2); NEUT % 64.9 % (42.8-82.8); PLATELET COUNT 223 10^3/uL (134-434); RBC 4.38 M/mm3 (3.60-5.2); RDW 13.2 % (11.6-15.6)
[2021-01-13 12:22] LABS: BLOOD UREA NITROGEN 20.3 mg/dL (7-18); CALCIUM 9.7 mg/dL (8.5-10.1)
[2021-01-13 12:23] LABS: ALBUMIN 3.3 g/dl (3.4-5.0)
[2021-01-13 12:25] LABS: CREATININE 1.1 mg/dL (0.55-1.3)
[2021-01-13 12:27] LABS: BILIRUBIN,TOTAL 0.5 mg/dL (0.2-1); TOT PROT 6.8 g/dl (6.4-8.2)
[2021-01-13] MEDS ORDERED: TRASTUZUMAB ANNS IVPB ONE (12:45)
[2021-01-13] MEDS ORDERED: SODIUM CHLORIDE IVPB ONE (12:45)
[2021-01-13 14:08] VITALS: BP 127/58; PULSE 48; TEMP 98
== END 2021-01-13 13:45 | disposition home or self-care (01) ==
LOC: JONCCHEMO 07:52
PROVIDERS: ATTEND Internal Medicine Hematology & Oncology
DX: Z51.11 Encounter for antineoplastic chemotherapy (principal); C50.511 Malignant neoplasm of lower-outer quadrant of right female breast
CPT/HCPCS: 36415; 80053; 85025; 96413; Q5117

== ENCOUNTER 2021-02-03 08:14 | Day surgery (SDC) | payer OTHER, BC ==
[2021-02-03] MEDS ORDERED: SODIUM CHLORIDE IVPB ONE (09:00)
[2021-02-03] MEDS ORDERED: TRASTUZUMAB ANNS IVPB ONE (09:00)
[2021-02-03 10:53] LABS: BASO % 1.9 % (0-2.0); EOS % 9.8 % (0-4.5); HEMATOCRIT 43.1 % (32.4-45.2); HEMOGLOBIN 14.5 GM/dL (10.7-15.3); LYMPH % 22.5 % (8-40); MCH 32.5 pg (25.7-33.7); MCHC 33.7 g/dl (32.0-36.0); MEAN CELL VOLUME 96.4 fl (80-96); MEAN PLT VOLUME 9.9 fl (7.5-11.1); MONO % 7.9 % (3.8-10.2); NEUT % 57.9 % (42.8-82.8); PLATELET COUNT 223 10^3/uL (134-434); RBC 4.47 M/mm3 (3.60-5.2); RDW 13.5 % (11.6-15.6); WHITE BLOOD COUNT 9.4 K/mm3 (4.0-10.0)
[2021-02-03 11:17] LABS: ALBUMIN 3.2 g/dl (3.4-5.0); BLOOD UREA NITROGEN 23.9 mg/dL (7-18); MAGNESIUM 1.9 mg/dL (1.8-2.4)
[2021-02-03 11:20] LABS: CREATININE 1.2 mg/dL (0.55-1.3)
[2021-02-03 11:22] LABS: BILIRUBIN,TOTAL 0.4 mg/dL (0.2-1); TOT PROT 6.4 g/dl (6.4-8.2)
[2021-02-03 16:00] VITALS: BP 143/64; PULSE 51; TEMP 98.1
== END 2021-02-03 12:15 | disposition home or self-care (01) ==
LOC: JONCCHEMO 08:14
PROVIDERS: ATTEND Internal Medicine Hematology & Oncology
DX: Z51.11 Encounter for antineoplastic chemotherapy (principal); C50.511 Malignant neoplasm of lower-outer quadrant of right female breast
CPT/HCPCS: 36415; 80053; 83735; 85025; 96413; Q5117

== ENCOUNTER 2021-03-30 07:45 | Day surgery (SDC) | payer OTHER, BC ==
[2021-03-30] MEDS ORDERED: SODIUM CHLORIDE IVPB ONE ×2 (11:00→15:00)
[2021-03-30] MEDS ORDERED: TRASTUZUMAB ANNS IVPB ONE ×2 (11:00→15:00)
[2021-03-30 16:24] LABS: BASO % 1.4 % (0-2.0); EOS % 10.6 % (0-4.5); HEMATOCRIT 42.8 % (32.4-45.2); HEMOGLOBIN 14.5 GM/dL (10.7-15.3); LYMPH % 21.5 % (8-40); MCH 32.3 pg (25.7-33.7); MCHC 33.8 g/dl (32.0-36.0); MEAN CELL VOLUME 95.7 fl (80-96); MEAN PLT VOLUME 10.4 fl (7.5-11.1); MONO % 9.1 % (3.8-10.2); NEUT % 57.4 % (42.8-82.8); PLATELET COUNT 204 10^3/uL (134-434); RBC 4.48 M/mm3 (3.60-5.2); RDW 13.8 % (11.6-15.6); WHITE BLOOD COUNT 8.7 K/mm3 (4.0-10.0)
[2021-03-30 17:58] VITALS: BP 123/74; PULSE 81; TEMP 98.6
[2021-03-30 21:18] LABS: ALBUMIN 3.5 g/dl (3.4-5.0)
[2021-03-31 19:20] LABS: BILIRUBIN,TOTAL 0.3 mg/dL (0.2-1); CALCIUM 9.7 mg/dL (8.5-10.1); CREATININE 1.1 mg/dL (0.55-1.3)
== END 2021-03-30 17:00 | disposition home or self-care (01) ==
LOC: JONCCHEMO 07:45
PROVIDERS: ATTEND Internal Medicine Hematology & Oncology
DX: Z51.11 Encounter for antineoplastic chemotherapy (principal); C50.511 Malignant neoplasm of lower-outer quadrant of right female breast
CPT/HCPCS: 36415; 80053; 85025; 96413; Q5117

== ENCOUNTER 2021-04-27 08:55 | Day surgery (SDC) | payer OTHER, BC ==
[2021-04-27] MEDS ORDERED: SODIUM CHLORIDE IVPB ONE (11:00)
[2021-04-27] MEDS ORDERED: TRASTUZUMAB ANNS IVPB ONE (11:00)
[2021-04-27 12:42] LABS: BASO % 1.2 % (0-2.0); EOS % 10.1 % (0-4.5); HEMATOCRIT 41.2 % (32.4-45.2); HEMOGLOBIN 13.9 GM/dL (10.7-15.3); LYMPH % 19.4 % (8-40); MCHC 33.6 g/dl (32.0-36.0); MONO % 6.4 % (3.8-10.2); NEUT % 62.9 % (42.8-82.8); PLATELET COUNT 222 10^3/uL (134-434); RBC 4.21 M/mm3 (3.60-5.2); RDW 14.1 % (11.6-15.6); WHITE BLOOD COUNT 6.7 K/mm3 (4.0-10.0)
[2021-04-27 15:09] LABS: ERYTHROCYTE SEDIMENTATION RATE 8 mm/hr (0-30)
[2021-04-27 15:29] LABS: CHLORIDE 104 mmol/L (98-107); SODIUM 135 mmol/L (136-145)
[2021-04-27 15:31] LABS: ALBUMIN 3.4 g/dl (3.4-5.0); CALCIUM 9.5 mg/dL (8.5-10.1); CO2 29 mmol/L (21-32)
[2021-04-27 15:32] LABS: BLOOD UREA NITROGEN 30.4 mg/dL (7-18); GLUCOSE,RANDOM 124 mg/dL (74-106)
[2021-04-27 15:33] VITALS: BP 113/53; PULSE 50; TEMP 97.6
[2021-04-27 15:33] LABS: CREATININE 1.2 mg/dL (0.55-1.3)
[2021-04-27 15:35] LABS: SGOT/AST 78 U/L (15-37)
[2021-04-27 15:36] LABS: BILIRUBIN,TOTAL 0.4 mg/dL (0.2-1); TOT PROT 7.2 g/dl (6.4-8.2)
[2021-04-27 15:38] LABS: ALK PHOS 87 U/L (45-117)
[2021-04-27 15:50] LABS: ANION GAP 1 MMOL/L (8-16); SGPT/ALT 32 U/L (13-61)
[2021-04-27 17:37] LABS: BLOOD UREA NITROGEN 29.9 mg/dL (7-18); CALCIUM 9.7 mg/dL (8.5-10.1)
[2021-04-27 17:41] LABS: CREATININE 1.1 mg/dL (0.55-1.3)
== END 2021-04-27 16:45 | disposition home or self-care (01) ==
LOC: JONCCHEMO 08:55
PROVIDERS: ATTEND Internal Medicine Hematology & Oncology
DX: Z51.11 Encounter for antineoplastic chemotherapy (principal); C50.511 Malignant neoplasm of lower-outer quadrant of right female breast
CPT/HCPCS: 36415; 80048; 80053; 84439; 84443; 85025; 85651; 86140; 86300; 96413; Q5117

== ENCOUNTER 2021-05-18 08:16 | Day surgery (SDC) | payer OTHER, BC ==
[2021-05-18] MEDS ORDERED: TRASTUZUMAB ANNS IVPB ONE (11:00)
[2021-05-18] MEDS ORDERED: SODIUM CHLORIDE IVPB ONE (11:00)
[2021-05-18 12:50] LABS: BASO % 1.1 % (0-2.0); EOS % 9.4 % (0-4.5); HEMATOCRIT 42.6 % (32.4-45.2); HEMOGLOBIN 14.6 GM/dL (10.7-15.3); LYMPH % 19.4 % (8-40); MCH 33.1 pg (25.7-33.7); MCHC 34.2 g/dl (32.0-36.0); MEAN CELL VOLUME 96.8 fl (80-96); MEAN PLT VOLUME 9.3 fl (7.5-11.1); MONO % 8.3 % (3.8-10.2); NEUT % 61.8 % (42.8-82.8); PLATELET COUNT 209 10^3/uL (134-434); RDW 13.6 % (11.6-15.6); WHITE BLOOD COUNT 7.2 K/mm3 (4.0-10.0)
[2021-05-18 13:15] LABS: ALBUMIN 3.5 g/dl (3.4-5.0); CALCIUM 9.7 mg/dL (8.5-10.1)
[2021-05-18 13:16] LABS: BLOOD UREA NITROGEN 22.7 mg/dL (7-18)
[2021-05-18 13:19] LABS: CREATININE 1.1 mg/dL (0.55-1.3)
[2021-05-18 13:26] LABS: BILIRUBIN,TOTAL 0.5 mg/dL (0.2-1)
[2021-05-18 14:40] VITALS: BP 131/54; PULSE 46; TEMP 98
== END 2021-05-18 15:08 | disposition home or self-care (01) ==
LOC: JONCCHEMO 08:16
PROVIDERS: ATTEND Internal Medicine Hematology & Oncology
DX: Z51.11 Encounter for antineoplastic chemotherapy (principal); C50.511 Malignant neoplasm of lower-outer quadrant of right female breast
CPT/HCPCS: 36415; 80053; 85025; 96413; Q5117

== ENCOUNTER 2021-06-14 07:01 | Day surgery (SDC) | payer OTHER, BC ==
[2021-06-14] MEDS ORDERED: TRASTUZUMAB ANNS IVPB ONE (10:00)
[2021-06-14] MEDS ORDERED: SODIUM CHLORIDE IVPB ONE (10:00)
[2021-06-14 13:08] LABS: BASO % 0.9 % (0-2.0); EOS % 11.3 % (0-4.5); HEMATOCRIT 45.2 % (32.4-45.2); HEMOGLOBIN 15.2 GM/dL (10.7-15.3); MCH 32.8 pg (25.7-33.7); MCHC 33.7 g/dl (32.0-36.0); MEAN CELL VOLUME 97.3 fl (80-96); MEAN PLT VOLUME 9.8 fl (7.5-11.1); MONO % 7.1 % (3.8-10.2); NEUT % 55.7 % (42.8-82.8); PLATELET COUNT 234 10^3/uL (134-434); RBC 4.65 M/mm3 (3.60-5.2); RDW 12.8 % (11.6-15.6); WHITE BLOOD COUNT 8.1 K/mm3 (4.0-10.0)
[2021-06-14 13:27] LABS: CALCIUM 9.5 mg/dL (8.5-10.1)
[2021-06-14 13:28] LABS: ALBUMIN 3.3 g/dl (3.4-5.0); BLOOD UREA NITROGEN 24.1 mg/dL (7-18)
[2021-06-14 13:31] LABS: CREATININE 1.2 mg/dL (0.55-1.3)
[2021-06-14 13:33] LABS: BILIRUBIN,TOTAL 0.4 mg/dL (0.2-1); TOT PROT 7.1 g/dl (6.4-8.2)
[2021-06-14 17:36] VITALS: BP 110/55; PULSE 53; TEMP 97.5
== END 2021-06-14 15:00 | disposition home or self-care (01) ==
LOC: JONCCHEMO 07:01
PROVIDERS: ATTEND Internal Medicine Hematology & Oncology
DX: Z51.11 Encounter for antineoplastic chemotherapy (principal); C50.511 Malignant neoplasm of lower-outer quadrant of right female breast
CPT/HCPCS: 36415; 80053; 85025; 96413; Q5117

== ENCOUNTER 2021-07-12 06:31 | Day surgery (SDC) | payer OTHER, BC ==
[2021-07-12] MEDS ORDERED: SODIUM CHLORIDE IVPB ONE (10:00)
[2021-07-12] MEDS ORDERED: TRASTUZUMAB ANNS IVPB ONE (10:00)
[2021-07-12 14:22] LABS: BASO % 1.4 % (0-2.0); EOS % 10.6 % (0-4.5); HEMATOCRIT 44.2 % (32.4-45.2); HEMOGLOBIN 14.5 GM/dL (10.7-15.3); LYMPH % 21.5 % (8-40); MCH 31.8 pg (25.7-33.7); MCHC 32.7 g/dl (32.0-36.0); MEAN CELL VOLUME 97.1 fl (80-96); MEAN PLT VOLUME 9.5 fl (7.5-11.1); MONO % 6.4 % (3.8-10.2); NEUT % 60.1 % (42.8-82.8); PLATELET COUNT 212 10^3/uL (134-434); RBC 4.55 M/mm3 (3.60-5.2); RDW 12.9 % (11.6-15.6); WHITE BLOOD COUNT 7.2 K/mm3 (4.0-10.0)
[2021-07-12 14:47] VITALS: BP 115/50; PULSE 50
[2021-07-12 14:50] LABS: BLOOD UREA NITROGEN 33.5 mg/dL (7-18); CALCIUM 9.6 mg/dL (8.5-10.1)
[2021-07-12 14:51] LABS: ALBUMIN 3.2 g/dl (3.4-5.0)
[2021-07-12 14:55] LABS: CREATININE 1.2 mg/dL (0.55-1.3)
[2021-07-12 14:56] LABS: BILIRUBIN,TOTAL 0.4 mg/dL (0.2-1)
[2021-07-12 14:57] LABS: TOT PROT 6.4 g/dl (6.4-8.2)
[2021-07-12 15:43] VITALS: TEMP 98
== END 2021-07-12 15:43 | disposition home or self-care (01) ==
LOC: JONCCHEMO 06:31
PROVIDERS: ATTEND Internal Medicine Hematology & Oncology
DX: Z51.11 Encounter for antineoplastic chemotherapy (principal); C50.511 Malignant neoplasm of lower-outer quadrant of right female breast
CPT/HCPCS: 36415; 80053; 85025; 86300; 96413; Q5117

== ENCOUNTER 2021-08-10 09:19 | Day surgery (SDC) | payer OTHER, BC ==
[2021-08-10 14:40] LABS: BASO % 1.1 % (0-2.0); EOS % 10.2 % (0-4.5); HEMATOCRIT 42.3 % (32.4-45.2); HEMOGLOBIN 14.2 GM/dL (10.7-15.3); LYMPH % 25.4 % (8-40); MCH 32.7 pg (25.7-33.7); MCHC 33.7 g/dl (32.0-36.0); MEAN CELL VOLUME 97.1 fl (80-96); MEAN PLT VOLUME 10.6 fl (7.5-11.1); MONO % 8.1 % (3.8-10.2); NEUT % 55.2 % (42.8-82.8); PLATELET COUNT 203 10^3/uL (134-434); RBC 4.35 M/mm3 (3.60-5.2); WHITE BLOOD COUNT 7.4 K/mm3 (4.0-10.0)
[2021-08-10] MEDS ORDERED: SODIUM CHLORIDE IVPB ONE (14:45)
[2021-08-10] MEDS ORDERED: TRASTUZUMAB ANNS IVPB ONE (14:45)
[2021-08-10 15:45] LABS: CALCIUM 9.4 mg/dL (8.5-10.1)
[2021-08-10 15:46] LABS: ALBUMIN 3.5 g/dl (3.4-5.0); BLOOD UREA NITROGEN 34.9 mg/dL (7-18)
[2021-08-10 15:49] LABS: CREATININE 1.2 mg/dL (0.55-1.3)
[2021-08-10 15:50] LABS: TOT PROT 6.9 g/dl (6.4-8.2)
[2021-08-10 15:51] LABS: BILIRUBIN,TOTAL 0.4 mg/dL (0.2-1)
[2021-08-10 18:03] VITALS: BP 124/70; PULSE 90; TEMP 98.2
== END 2021-08-10 16:30 | disposition home or self-care (01) ==
LOC: JONCCHEMO 09:19
PROVIDERS: ATTEND Internal Medicine Hematology & Oncology
DX: Z51.11 Encounter for antineoplastic chemotherapy (principal); C50.511 Malignant neoplasm of lower-outer quadrant of right female breast
CPT/HCPCS: 36415; 80053; 85025; 96413; Q5117

== ENCOUNTER 2021-08-31 13:14 | Day surgery (SDC) | payer OTHER, BC ==
[2021-08-31 13:51] LABS: BASO % 1.3 % (0-2.0); EOS % 10.6 % (0-4.5); HEMATOCRIT 42.2 % (32.4-45.2); HEMOGLOBIN 14.3 GM/dL (10.7-15.3); MCH 32.6 pg (25.7-33.7); MEAN CELL VOLUME 96.1 fl (80-96); MEAN PLT VOLUME 10.1 fl (7.5-11.1); MONO % 7.8 % (3.8-10.2); NEUT % 61.3 % (42.8-82.8); PLATELET COUNT 183 10^3/uL (134-434); RBC 4.39 M/mm3 (3.60-5.2); RDW 13.4 % (11.6-15.6)
[2021-08-31 13:52] LABS: ALBUMIN 3.3 g/dl (3.4-5.0); BLOOD UREA NITROGEN 25.5 mg/dL (7-18); CALCIUM 9.4 mg/dL (8.5-10.1)
[2021-08-31 13:55] LABS: CREATININE 1.1 mg/dL (0.55-1.3)
[2021-08-31 13:57] LABS: BILIRUBIN,TOTAL 0.5 mg/dL (0.2-1); TOT PROT 6.8 g/dl (6.4-8.2)
[2021-08-31] MEDS ORDERED: SODIUM CHLORIDE IVPB ONE (15:00)
[2021-08-31] MEDS ORDERED: TRASTUZUMAB ANNS IVPB ONE (15:00)
[2021-08-31 16:24] VITALS: BP 144/63; PULSE 45; TEMP 98.1
== END 2021-08-31 15:40 | disposition home or self-care (01) ==
LOC: JONCCHEMO 13:14
PROVIDERS: ATTEND Internal Medicine Hematology & Oncology
DX: Z51.11 Encounter for antineoplastic chemotherapy (principal); C50.511 Malignant neoplasm of lower-outer quadrant of right female breast
CPT/HCPCS: 36415; 80053; 82306; 85025; 96413; Q5117

== ENCOUNTER 2021-09-21 07:25 | Day surgery (SDC) | payer OTHER, BC ==
[2021-09-21 12:14] LABS: BASO % 1.5 % (0-2.0); EOS % 8.7 % (0-4.5); HEMOGLOBIN 14.9 GM/dL (10.7-15.3); LYMPH % 18.5 % (8-40); MCH 32.2 pg (25.7-33.7); MCHC 33.2 g/dl (32.0-36.0); MEAN CELL VOLUME 97.1 fl (80-96); MEAN PLT VOLUME 10.4 fl (7.5-11.1); MONO % 5.3 % (3.8-10.2); PLATELET COUNT 227 10^3/uL (134-434); RBC 4.64 M/mm3 (3.60-5.2); RDW 13.7 % (11.6-15.6); WHITE BLOOD COUNT 8.1 K/mm3 (4.0-10.0)
[2021-09-21 12:33] LABS: BLOOD UREA NITROGEN 24.5 mg/dL (7-18); CALCIUM 9.8 mg/dL (8.5-10.1)
[2021-09-21 12:34] LABS: ALBUMIN 3.4 g/dl (3.4-5.0)
[2021-09-21 12:36] LABS: CREATININE 1.3 mg/dL (0.55-1.3)
[2021-09-21 12:38] LABS: BILIRUBIN,TOTAL 0.5 mg/dL (0.2-1); TOT PROT 6.9 g/dl (6.4-8.2)
[2021-09-21] MEDS ORDERED: TRASTUZUMAB ANNS IVPB ONE (14:00)
[2021-09-21] MEDS ORDERED: SODIUM CHLORIDE IVPB ONE (14:00)
[2021-09-21 15:56] VITALS: BP 126/61; PULSE 48; TEMP 97.8
== END 2021-09-21 14:40 | disposition home or self-care (01) ==
LOC: JONCCHEMO 07:25
PROVIDERS: ATTEND Internal Medicine Hematology & Oncology
DX: Z51.11 Encounter for antineoplastic chemotherapy (principal); C50.511 Malignant neoplasm of lower-outer quadrant of right female breast
CPT/HCPCS: 36415; 80053; 85025; 96413; Q5117

== ENCOUNTER 2021-10-12 07:03 | Day surgery (SDC) | payer OTHER, BC ==
[2021-10-12] MEDS ORDERED: TRASTUZUMAB ANNS IVPB ONE (10:00)
[2021-10-12] MEDS ORDERED: SODIUM CHLORIDE IVPB ONE (10:00)
[2021-10-12 14:46] LABS: BASO % 1.1 % (0-2.0); EOS % 10.3 % (0-4.5); HEMATOCRIT 41.4 % (32.4-45.2); LYMPH % 21.8 % (8-40); MCH 32.5 pg (25.7-33.7); MCHC 33.9 g/dl (32.0-36.0); MEAN CELL VOLUME 95.7 fl (80-96); MEAN PLT VOLUME 10.6 fl (7.5-11.1); MONO % 7.4 % (3.8-10.2); NEUT % 59.4 % (42.8-82.8); PLATELET COUNT 198 10^3/uL (134-434); RBC 4.32 M/mm3 (3.60-5.2); WHITE BLOOD COUNT 7.8 K/mm3 (4.0-10.0)
[2021-10-12 14:50] VITALS: RESP 18; TEMP 98.2
[2021-10-12 15:04] LABS: CALCIUM 9.8 mg/dL (8.5-10.1)
[2021-10-12 15:06] LABS: BLOOD UREA NITROGEN 18.7 mg/dL (7-18)
[2021-10-12 15:07] LABS: ALBUMIN 3.3 g/dl (3.4-5.0)
[2021-10-12 15:09] LABS: CREATININE 1.1 mg/dL (0.55-1.3)
[2021-10-12 15:11] LABS: BILIRUBIN,TOTAL 0.6 mg/dL (0.2-1); TOT PROT 6.4 g/dl (6.4-8.2)
[2021-10-13 08:51] VITALS: BP 122/74; PULSE 51
== END 2021-10-12 16:31 | disposition home or self-care (01) ==
LOC: JONCCHEMO 07:03
PROVIDERS: ATTEND Internal Medicine Hematology & Oncology
DX: Z12.11 Encounter for screening for malignant neoplasm of colon (principal); C50.511 Malignant neoplasm of lower-outer quadrant of right female breast
CPT/HCPCS: 36415; 80053; 85025; 96413; Q5117

== ENCOUNTER 2022-06-14 18:01 | Emergency (ER) | payer OTHER, BC ==
[2022-06-14] MEDS ORDERED: ALBUTEROL SO4 2.5/IPRATROPIUM 0.5 INH SOL 3 ML VIAL.NEB. NEB ONE ×2 (18:04→18:22)
[2022-06-14 18:20] VITALS: BP 135/53; PULSE 86; RESP 20; TEMP 97.8; BMI 17.8
[2022-06-14 18:29] LABS: HEMATOCRIT 48.3 % (32.4-45.2); HEMOGLOBIN 16.3 G/dL (10.7-15.3); MCH 32.3 pg (25.7-33.7); MCHC 33.7 g/dl (32.0-36.0); MEAN CELL VOLUME 95.8 fl (80-96); MEAN PLT VOLUME 8.6 fl (7.5-11.1); PLATELET COUNT 374.8 10^3/uL (134-434); RBC 5.04 10^6/uL (3.60-5.2); RDW 13.7 % (11.6-15.6); WHITE BLOOD COUNT 9.7 10^3/uL (4.0-10.8)
[2022-06-14 18:37] LABS: INR 0.92 (0.83-1.09); PROTHROMBIN TIME (PATIENT) 10.6 SEC (9.7-13.0)
[2022-06-14 18:40] LABS: ACTIVATED PTT 29.7 SECONDS (25.2-36.5)
[2022-06-14 18:50] LABS: BILIRUBIN,TOTAL 0.5 mg/dl (0.2-1); CALCIUM 9.2 mg/dl (8.5-10); MAGNESIUM 1.6 mg/dL (1.8-2.4); PHOSPHOROUS 2.8 mg/dl (2.5-4.9)
[2022-06-14 19:29] LABS: PLATELET ESTIMATE ADEQUATE
[2022-06-14 20:29] LABS: VENOUS BASE EXCESS 2.2 mmol/L (-2-2); VENOUS O2 SATURATION 20.5 % (70-80); VENOUS PCO2 49.3 mmHg (38-52); VENOUS PH 7.382 (7.310-7.410)
[2022-06-14] MEDS ORDERED: levoFLOXacin 750 MG TABLET PO STA (20:46)
[2022-06-14] MEDS ORDERED: DOXYCYCLINE INJECTION 100 MG in DEXTROSE 5%-WATER 100 ML IVPB ONE (21:10)
[2022-06-14] MEDS ORDERED: CEFTRIAXONE 1,000 MG in DEXTROSE 5%-WATER - 50 ML IVPB ONE (21:10)
[2022-06-14] MEDS ORDERED: cefTRIAXone SODIUM 1 GM VIAL ONE (21:12)
[2022-06-14] MEDS ORDERED: DOXYCYCLINE HYCLATE 100 MG VIAL ONE (21:13)
[2022-06-14 22:04] LABS: N-TERMINAL BNP 1990.5 pg/ml (5-450)
== END 2022-06-14 22:41 | disposition left against medical advice (07) ==
LOC: FER 18:01
PROC: 3E033GC Introduction of Other Therapeutic Substance into Peripheral Vein, Percutaneous Approach (ICD-10-PCS; principal; 2022-06-14)
DX: J18.9 Pneumonia, unspecified organism (principal); R06.02 Shortness of breath; R05.9 Cough, unspecified; R00.0 Tachycardia, unspecified
CPT/HCPCS: 36415; 71045-TC-FY; 71275-TC; 80053; 82803; 83735; 83880; 84100; 84484; 85027; 85610; 85730; 93005; 99285-25; Q9967